=== PATIENT | male | born 1945 | race Caucasian/White ===

== ENCOUNTER 2021-04-22 11:27 | Inpatient (IN) | payer OTHER, SELFPAY ==
[2021-04-22] VITALS (8 sets, daily range): BP systolic 105–160; BP diastolic 44–78; PULSE 96–125; RESP 12–22; TEMP 36.8–37.2; O2SAT 87–98; BMI 38.7
--- NOTE | ~2021-04-22 | XR_ITS ---
EXAMINATION: XR CHEST CLINICAL INFORMATION: Shortness of breath COMPARISON: None TECHNIQUE: Frontal view of the chest was obtained. FINDINGS: The cardiac silhouette is enlarged. There are median sternotomy wires bowel. Hilar and mediastinal contours are unremarkable. Elevation of the right hemidiaphragm. The lungs are clear. There is no pleural effusion or pneumothorax. Bony structures are unremarkable. XR/XR chest 1V IMPRESSION: Enlarged heart and postoperative changes from aortic valve replacement. Elevated right hemidiaphragm.
--- NOTE | 2021-04-22 11:52 | ECG_ITS ---
Test Reason : DYSPNEA Blood Pressure : / mmHG Vent. Rate : 109 BPM Atrial Rate : 000 BPM P-R Int : 000 ms QRS Dur : 136 ms QT Int : 384 ms P-R-T Axes : 000 -74 049 degrees QTc Int : 517 ms Atrial fibrillation with rapid ventricular response with premature ventricular or aberrantly conducted complexes Left axis deviation Right bundle branch block Abnormal ECG No previous ECGs available Referred By: Manda Leyva Electronically Signed By:Karthik Wagner
--- NOTE | 2021-04-22 12:28 | ED_ITS ---
HPI - SOB/Dyspnea General Chief Complaint: Dyspnea Stated Complaint: SOB,-COVID Time Seen by Provider: 04/22/21 11:52 Source: patient and EMS Mode of arrival: EMS Limitations: no limitations History of Present Illness HPI Narrative: 75-year-old male with a history of bovine aortic valve replacement 2009 on warfarin, CHF, HLD, COPD, FARNAZ on CPAP (noncompliant as of late w/ no machine), hypothyroidism, DM on insulin w/ neuropathy, HLD, afib, hx rib fractures s/p fall 7 weeks ago who presents to the ER from his [place] [facility] where he is temporarily residing via EMS with SOB and cough x3 days. He reports calling an ambulance to the [place] [facility] on 04/20 but EMT's didn't think he had pneumonia and his VS were normal so he signed a paper to refuse transport. He reports his breathing has continued to get worse over the last 2 days. He is bringing up white and clear phlegm. He states his breathing is worse with exertion, coughing, and lying flat. He denies any fever or chills. He had negative COVID test 2 days ago and was due to get another COVID test today. He reports there has been COVID positive people at the [place] [facility]. He is vaccinated with 2 shots a Pfizer in May & July, has not gotten booster yet. He denies any abdominal pain or diarrhea, but he was dry heaving today. He reports his INR last week was 5.8 and he had some intermittent nose bleeds but denies any evidence of GI bleed. INR better today at 4.0 per his report. He denies any chest pain. MD elicited complaint: shortness of breath and cough Pertinent past history: COPD, congestive heart failure and diabetes Onset (ago): day(s) (3) Context: recent illness Timing: constant and progressively worsening Severity: moderate Exacerbating factors: lying flat, exertion and coughing Relieving factors: rest Known history of: COPD, congestive heart failure and diabetes Associated symptoms: cough, sputum production and chest congestion Treatment prior to arrival: none Related Data Home oxygen amount: none Home Medications Medication Instructions Recorded Confirmed aspirin 81 mg tablet,delayed 1 tab PO BEDTIME 04/22/21 04/22/21 release atorvastatin 40 mg tablet 1 tab PO BEDTIME 04/22/21 04/22/21 bumetanide 2 mg tablet 1 tab PO BID 04/22/21 04/22/21 gabapentin 300 mg capsule 1 cap PO TID 04/22/21 04/22/21 insulin aspart U-100 100 unit/mL See Protocol SUBCUT QIDACHS 04/22/21 04/22/21 (3 mL) subcutaneous pen (Novolog Flexpen U-100 Insulin aspart) insulin glargine 100 unit/mL (3 36 unit SUBCUT BEDTIME 04/22/21 04/22/21 mL) subcutaneous pen (Lantus Solostar U-100 Insulin) levothyroxine 25 mcg tablet 1 tab PO DAILY 04/22/21 04/22/21 lisinopril 40 mg tablet 1 tab PO DAILY 04/22/21 04/22/21 metoprolol succinate 100 mg 1 tab PO DAILY 04/22/21 04/22/21 tablet,extended release 24 hr multivitamin with folic acid 400 1 tab PO DAILY 04/22/21 04/22/21 mcg tablet (Tab-A-Priscilla) warfarin 5 mg tablet 5 mg PO DAILY 04/22/21 04/22/21 Allergies Allergy/AdvReac Type Severity Reaction Status Date / Time Unable to Assess Allergy Unverified 04/22/21 11:52 Review of Systems Review of Systems: Constitutional: No Fever, No Chills ENT/Mouth: No sore throat, No Rhinorrhea, No Swallowing Difficulty Eyes: No Eye Pain, No Swelling, No Redness Cardiovascular: No Chest Pain, + SOB, + Orthopnea, + Edema Respiratory: + Cough, + Sputum, No Wheezing, + dyspnea Gastrointestinal: No Nausea, No Vomiting, No Diarrhea, No abdominal Pain, No Hematochezia, No Melena Genitourinary: No Dysuria, No Urinary Frequency, No Hematuria Musculoskeletal: No joint pain, No Myalgias Skin: No Skin Lesions, No rash Neuro: No Weakness, No Numbness, No Dizziness, No Headache Psych: No Anxiety/Panic, No Depression Heme/Lymph: No Bruising, No Lymphadenopathy Endocrine: No Polyuria, No Polydipsia PMFSH Past Medical History Medical History (Updated 04/22/21 @ 16:37 by ELVIE Vela) A-fib Aortic stenosis Carotid artery disease COPD (chronic obstructive pulmonary disease) Drop foot gait Heart failure HLD (hyperlipidemia) Hypertension Neuropathy FARNAZ (obstructive sleep apnea) Pneumonia Surgical History History of aortic valve replacement Social History Social History (Updated 04/22/21 @ 16:38 by ELVIE Vela) Alcohol intake: never Patient Tobacco Use Status: Never used Tobacco Use of substances other than those prescribed or required for medical reasons: No Advance Directives: No Advance Directives Information Provided: Yes Physical Exam Vital Signs: Vital Signs: Last Vital Signs Temp 98.3 F 04/22/21 15:01 Pulse 110 H 04/22/21 15:01 Resp 19 04/22/21 15:01 BP 147/59 H 04/22/21 15:01 Pulse Ox 98 04/22/21 15:01 BMI result Body Mass Index 38.7 Appearance: Alert. Oriented X3. No acute distress. Eyes: Pupils equal, round and reactive to light. ENT: Pharynx normal. Neck: Normal inspection. Neck supple. CVS: Irregularly irregular, rapid rate, 110. Question of murmur. Pulses normal. Respiratory: No respiratory distress. Breath sounds diminished bilaterally with faint wheezes throughout the right lung. Abdomen: Obese, ecchymosis on lower abdomen. Soft and nontender. +BS x4 Skin: Skin warm and dry. Normal skin color. Normal skin turgor. No rashes. Extremities: 1+ lower extremity edema. Neuro: Oriented X 3. No motor deficit. No sensory deficit. Course Course Course Narrative: 75-year-old male with a history of COPD, CHF, diabetes, heart valve replacement on Coumadin, AFib who presents to the ER with shortness of breath and cough times the last 3 days. EMS was called for him to the [place] [facility] on Sunday but he signed a paper and declined to come to the hospital because he was feeling ?okay. ? He states his breathing has only gotten worsening has been unable to sleep the last 2 nights because of his shortness of breath. He is a never smoker and is not on any inhalers for his COPD. He has been noncompliant with his CPAP because he currently does not have his machine. He denies any fever or chills. He is vaccinated for COVID-19 with 2 Pfizer vaccines but has not gotten his booster yet. He is bringing up white or clear phlegm and is having recurrent bouts of coughing fits. On arrival to the ER patient is tachycardic in rapid afib and hypoxic to 87% on room air. He is placed on 2 L with improvement in his sats 96%. Concern for possible pneumonia versus COVID. Will get chest x-ray, metabolic workup, EKG, INR. He reports his INR was 4 today and 5.8 last week. He denies any evidence of GI bleeding but has had a few minor nosebleeds in the last few days are able to be stopped with pressure. Doubt PE in the setting of supratherapeutic INR Reevaluation(s) Reevaluation #1: 1:30 - Labs reveal no leukocytosis. His chemistry hemolyzed needs to be repeated. His troponin is 30, will repeat in 3 hours. His EKG does not have any ischemic changes. BNP 334 - he on 2mg PO Bumex BID - will hold off on IV fluids for now. Chest x-ray showing right hemidiaphragm elevation but lungs are clear. His rapid COVID is negative. Will get viral PCR test as well. Will empirically treat with a dose of IV Levaquin for respiratory coverage, possible bronchitis with evidence of COPD exacerbation and wheezing on examination. DuoNeb ordered. Will reassess. Trialed off of supplemental oxygen and desaturated to 87% while speaking. Placed back on 2 L nasal cannula with improvement in saturations. HR 110s - he reports not taking his metoprolol due to dry heaving today. Reevaluation #2: 3:30 - chemistry returned with BUN/Cr 25/1.17, bicarb 33. will hold off on IV diuresis for now, he does not appear acutely volume overloaded. His SOB is more likely due to COPD exacerbation and acute bronchitis. Aeration improved some after neb. Will plan for admission. Dr. Trevizo TT for admit. MDM - SOB/Dyspnea Differential Diagnosis Differential diagnosis: Likely acute exacerbation of chronic obstructive airways disease, congestive heart failure, pneumonia, asthma with exacerbation, pleural effusion, sleep apnea and anemia Medical Records Attestation: I reviewed the patient's medical records. Lab Data Attestation: I reviewed the patient's lab results. Result diagrams: 04/22/21 12:30 04/22/21 14:36 Labs: Lab Results 04/22/21 04/22/21 04/22/21 Range/Units 12:30 12:30 12:30 WBC 8.1 (4.8-10.8) X10*3/uL RBC 3.86 L (4.60-5.80) X10*6/uL Hgb 11.6 L (14.0-18.0) g/dl Hct 37.1 L (42.0-52.0) % MCV 96.1 (80.0-98.0) fL MCH 30.1 (27.0-33.0) pg MCHC 31.3 (31.0-36.0) g/dl RDW 14.3 (11.0-16.0) % Plt Count 117 L (160-400) X10*3/uL MPV 11.8 (9.4-12.4) fL Immature Gran % (Auto) 0.2 (0.0-0.4) % Neut % (Auto) 79.4 H (45-73) % Lymph % (Auto) 11.6 L (20-40) % Rhea % (Auto) 7.8 (2-11) % Eos % (Auto) 0.6 (0-4) % Baso % (Auto) 0.4 (0-2) % Lymph # (Auto) 0.9 L (1.2-4.9) X10*3/uL Rhea # (Auto) 0.6 (0.1-1.2) X10*3/uL Eos # (Auto) 0.1 (0.0-0.4) X10*3/uL Baso # (Auto) 0.0 (0.0-0.2) X10*3/uL Abs Immat Gran (auto) 0.02 (0.00-0.03) X10*3/uL Absolute Neuts (auto) 6.4 (2.0-8.3) x10*3/uL Absolute Nucleated RBC 0.000 (0.0-0.012) X10*3/uL Nucleated RBC % (auto) 0.0 (0.0-0.2) /100WBC PT 44.7 H (9.9-13.0) SEC INR 3.8 H (0.9-1.1) APTT 53.6 H (24.1-38.0) SEC Sodium (135-145) mmol/L Potassium (3.3-5.1) mmol/L Chloride (96-108) mmol/L Carbon Dioxide (22-29) mmol/L Anion Gap (12-20) BUN (9-16) mg/dL Creatinine (0.5-1.4) mg/dL Estim Creat Clear Calc Estimated GFR Random Glucose (60-115) mg/dL Lactic Acid (0.5-2.0) mmol/L Calcium (8.4-10.2) mg/dL Magnesium (1.6-2.6) mg/dL Total Bilirubin (0.0-1.0) mg/dL Direct Bilirubin (0.0-0.5) mg/dL AST (5-37) U/L ALT (0-40) U/L Alkaline Phosphatase (39-117) U/L Troponin I High Sens 30.6 (<3.5-35.0) ng/L B-Natriuretic Peptide 334 H (<100) pg/mL Total Protein (6.5-8.0) g/dL Albumin (3.5-5.0) g/dL TSH (0.32-4.0) uIU/mL COVID-19 (CHEPE) (Negative) COVID-19 Clin Com Influenza Type A (PCR) (Negative) Influenza Type B (PCR) (Negative) RSV RNA Qual (PCR) (Negative) SARS-CoV-2 RNA (RT-PCR) (Negative) 04/22/21 04/22/21 04/22/21 Range/Units 12:31 14:36 14:36 WBC (4.8-10.8) X10*3/uL RBC (4.60-5.80) X10*6/uL Hgb (14.0-18.0) g/dl Hct (42.0-52.0) % MCV (80.0-98.0) fL MCH (27.0-33.0) pg MCHC (31.0-36.0) g/dl RDW (11.0-16.0) % Plt Count (160-400) X10*3/uL MPV (9.4-12.4) fL Immature Gran % (Auto) (0.0-0.4) % Neut % (Auto) (45-73) % Lymph % (Auto) (20-40) % Rhea % (Auto) (2-11) % Eos % (Auto) (0-4) % Baso % (Auto) (0-2) % Lymph # (Auto) (1.2-4.9) X10*3/uL Rhea # (Auto) (0.1-1.2) X10*3/uL Eos # (Auto) (0.0-0.4) X10*3/uL Baso # (Auto) (0.0-0.2) X10*3/uL Abs Immat Gran (auto) (0.00-0.03) X10*3/uL Absolute Neuts (auto) (2.0-8.3) x10*3/uL Absolute Nucleated RBC (0.0-0.012) X10*3/uL Nucleated RBC % (auto) (0.0-0.2) /100WBC PT (9.9-13.0) SEC INR (0.9-1.1) APTT (24.1-38.0) SEC Sodium 143 (135-145) mmol/L Potassium 4.1 (3.3-5.1) mmol/L Chloride 101 (96-108) mmol/L Carbon Dioxide 33 H (22-29) mmol/L Anion Gap 13 (12-20) BUN 25 H (9-16) mg/dL Creatinine 1.17 (0.5-1.4) mg/dL Estim Creat Clear Calc 65.1 Estimated GFR > 60 Random Glucose 217 H (60-115) mg/dL Lactic Acid (0.5-2.0) mmol/L Calcium 9.1 (8.4-10.2) mg/dL Magnesium 2.3 (1.6-2.6) mg/dL Total Bilirubin 1.3 H (0.0-1.0) mg/dL Direct Bilirubin 0.6 H (0.0-0.5) mg/dL AST 26 (5-37) U/L ALT 20 (0-40) U/L Alkaline Phosphatase 165 H (39-117) U/L Troponin I High Sens (<3.5-35.0) ng/L B-Natriuretic Peptide (<100) pg/mL Total Protein 7.4 (6.5-8.0) g/dL Albumin 3.8 (3.5-5.0) g/dL TSH 2.33 (0.32-4.0) uIU/mL COVID-19 (CHEPE) Negative (Negative) COVID-19 Clin Com See Note Influenza Type A (PCR) (Negative) Influenza Type B (PCR) (Negative) RSV RNA Qual (PCR) (Negative) SARS-CoV-2 RNA (RT-PCR) (Negative) 04/22/21 04/22/21 Range/Units 14:36 14:36 WBC (4.8-10.8) X10*3/uL RBC (4.60-5.80) X10*6/uL Hgb (14.0-18.0) g/dl Hct (42.0-52.0) % MCV (80.0-98.0) fL MCH (27.0-33.0) pg MCHC (31.0-36.0) g/dl RDW (11.0-16.0) % Plt Count (160-400) X10*3/uL MPV (9.4-12.4) fL Immature Gran % (Auto) (0.0-0.4) % Neut % (Auto) (45-73) % Lymph % (Auto) (20-40) % Rhea % (Auto) (2-11) % Eos % (Auto) (0-4) % Baso % (Auto) (0-2) % Lymph # (Auto) (1.2-4.9) X10*3/uL Rhea # (Auto) (0.1-1.2) X10*3/uL Eos # (Auto) (0.0-0.4) X10*3/uL Baso # (Auto) (0.0-0.2) X10*3/uL Abs Immat Gran (auto) (0.00-0.03) X10*3/uL Absolute Neuts (auto) (2.0-8.3) x10*3/uL Absolute Nucleated RBC (0.0-0.012) X10*3/uL Nucleated RBC % (auto) (0.0-0.2) /100WBC PT (9.9-13.0) SEC INR (0.9-1.1) APTT (24.1-38.0) SEC Sodium (135-145) mmol/L Potassium (3.3-5.1) mmol/L Chloride (96-108) mmol/L Carbon Dioxide (22-29) mmol/L Anion Gap (12-20) BUN (9-16) mg/dL Creatinine (0.5-1.4) mg/dL Estim Creat Clear Calc Estimated GFR Random Glucose (60-115) mg/dL Lactic Acid 2.0 (0.5-2.0) mmol/L Calcium (8.4-10.2) mg/dL Magnesium (1.6-2.6) mg/dL Total Bilirubin (0.0-1.0) mg/dL Direct Bilirubin (0.0-0.5) mg/dL AST (5-37) U/L ALT (0-40) U/L Alkaline Phosphatase (39-117) U/L Troponin I High Sens (<3.5-35.0) ng/L B-Natriuretic Peptide (<100) pg/mL Total Protein (6.5-8.0) g/dL Albumin (3.5-5.0) g/dL TSH (0.32-4.0) uIU/mL COVID-19 (CHEPE) (Negative) COVID-19 Clin Com Influenza Type A (PCR) NEGATIVE (Negative) Influenza Type B (PCR) NEGATIVE (Negative) RSV RNA Qual (PCR) NEGATIVE (Negative) SARS-CoV-2 RNA (RT-PCR) NEGATIVE (Negative) ECG Data Attestation: I personally reviewed and interpreted this ECG as follows: ECG interpretation date: 04/22/21 ECG interpretation time: 13:46 Prior ECG tracings: not available for review Interpretation: AFib with rapid ventricular response, heart rate 109 beats per minute, right bundle-branch block, intermittent occasional PVCs, no ST segment elevations or depressions. Critical Care Time Critical Care Time Critical Care Time: Yes Total Critical Care Time: 48 Attestation: I have personally provided critical care time exclusive of time spent on separately billable procedures. Time includes review of lab data, radiology results, discussion with consultants/hospitalists, and monitoring for potential decompensation. Intervention performed as documented. Discharge Plan Discharge Clinical Impression: Acute exacerbation of chronic obstructive airways disease, Acute respiratory failure with hypoxia, Bronchitis, Atrial fibrillation with rapid ventricular response Patient Disposition: Admitted As Inpatient
[2021-04-22 12:35] LABS: MANUAL DIFF FLAG NO
[2021-04-22 12:43] LABS: Basophils Percent Auto 0.4 % (0-2); Eosinophils Absolute Auto 0.1 X10*3/uL (0.0-0.4); Eosinophils Percent Auto 0.6 % (0-4); Hematocrit 37.1 % (42.0-52.0); Hemoglobin 11.6 g/dl (14.0-18.0); Imm Gran Abs Auto 0.02 X10*3/uL (0.00-0.03); Imm Gran Pct Auto 0.2 % (0.0-0.4); Lymphocytes Absolute Auto 0.9 X10*3/uL (1.2-4.9); Lymphocytes Percent Auto 11.6 % (20-40); Mean Corpuscular HGB Conc 31.3 g/dl (31.0-36.0); Mean Corpuscular Hemoglobin 30.1 pg (27.0-33.0); Mean Corpuscular Volume 96.1 fL (80.0-98.0); Mean Platelet Volume 11.8 fL (9.4-12.4); Monocytes Absolute Auto 0.6 X10*3/uL (0.1-1.2); Monocytes Percent Auto 7.8 % (2-11); Neutrophils Absolute Auto 6.4 x10*3/uL (2.0-8.3); Neutrophils Percent Auto 79.4 % (45-73); Platelet Count 117 X10*3/uL (160-400); Red Blood Count 3.86 X10*6/uL (4.60-5.80); Red Cell Distribution Width 14.3 % (11.0-16.0); White Blood Count 8.1 X10*3/uL (4.8-10.8)
[2021-04-22 12:45] LABS: INTERNATIONAL NORM RATIO 3.8 (0.9-1.1); Prothrombin Time 44.7 SEC (9.9-13.0)
[2021-04-22 12:48] LABS: Partial Thromboplastin Time 53.6 SEC (24.1-38.0)
[2021-04-22 13:05] LABS: B Type Natriuretic Peptide 334 pg/mL (<100); Troponin-I High Sensitivity 30.6 ng/L (<3.5-35.0)
[2021-04-22 13:07] LABS: COVID-19 Test Negative (Negative)
--- NOTE | 2021-04-22 13:09 | PC.NURSE ---
called resp re updraft order
[2021-04-22] MEDS: Albuterol/Iprat 2.5/0.5MG 3 ML AMPUL.NEB INHALE ×2 (13:15→20:43)
[2021-04-22] MEDS: Metoprolol Succinate ER 100 MG TAB.ER.24H PO (14:23)
[2021-04-22] MEDS: levoFLOXacin/D5W 750 MG/150 ML PIGGYBACK 100 MG IV (14:59)
[2021-04-22 15:01] LABS: Alanine Aminotransferase 20 U/L (0-40); Albumin Level 3.8 g/dL (3.5-5.0); Alkaline Phosphatase 165 U/L (39-117); Anion Gap 13 (12-20); Aspartate Amino Transferase 26 U/L (5-37); Bilirubin Direct 0.6 mg/dL (0.0-0.5); Bilirubin Total 1.3 mg/dL (0.0-1.0); Blood Urea Nitrogen 25 mg/dL (9-16); Calcium 9.1 mg/dL (8.4-10.2); Carbon Dioxide 33 mmol/L (22-29); Chloride 101 mmol/L (96-108); Creatinine Clr Calc Pharmacy 65.1; Estimated Glomerular Filt Rate > 60; Glucose Random 217 mg/dL (60-115); Magnesium 2.3 mg/dL (1.6-2.6); Potassium 4.1 mmol/L (3.3-5.1); Sodium 143 mmol/L (135-145); Total Protein 7.4 g/dL (6.5-8.0)
--- NOTE | 2021-04-22 15:05 | PC.NURSE ---
patient a&ox3, bc drawn, repeat labs drawn, vss, monitor and storage bin tender afib with pvcs, pt speaking with pharmacist, iv antibiotics per order.
--- NOTE | 2021-04-22 15:16 | PHA.MEDREC ---
Pharmacy Consult ? Medication Reconciliation Pharmacy has completed the medication reconciliation.
[2021-04-22 15:19] LABS: TSH reflex Free T4 2.33 uIU/mL (0.32-4.0)
[2021-04-22 15:21] LABS: Influenza A PCR NEGATIVE (Negative); Influenza B PCR NEGATIVE (Negative); Resp Syncy Virus RNA Qual PCR NEGATIVE (Negative); SARS COV2 PCR INHOUSE NEGATIVE (Negative)
--- NOTE | 2021-04-22 16:23 | P.HPHOSP_ITS ---
History of Present Illness Date of Service: 04/22/21 Attending physician on admission: Ozzy Davidson Chief Complaint: shortness of breath This is a 75-year-old male with multiple medical problems who presented with shortness of breath. Patient states he is having shortness of breath for the past 2-3 days. This has been associated with cough productive of clear phlegm. He denies any associated fever or chills. He did have an episode of dry heaving this morning but denies any abdominal pain, nausea, vomiting, diarrhea. He denies any chest pain, palpitations. On arrival to the emergency department he was noted to be hypoxic with an oxygen saturation of 80% on room air which improved with supplemental oxygen. Chest x-ray demonstrated no evidence of pneumonia. Lab work was relatively unremarkable, no leukocytosis. Troponin was in the indeterminate range at 30. Repeat pending at the time of admission. BNP 333. Patient has been compliant with his diuretics, denies any weight gain, no orthopnea, no change in lower extremity swelling. He tested negative for COVID- 19, RSV, flu. In the emergency department he noted to be wheezing which improved with breathing treatment. He was also given a dose of levofloxacin for possible bronchitis. Heart rate was elevated an EKG revealed atrial fibrillation with rapid ventricular response. Patient did not take his metoprolol this morning due to his dry heaving. He received a dose of oral metoprolol with good effect. Given his hypoxia the decision was made to admit him for further management. COVID vaccination status-whodoyou x2 Review of Systems Review of Systems: Yes all other systems are reviewed and are negative Constitutional: Constitutional: Denies chills and Denies fever(s) Cardiovascular: Cardiovascular: Denies chest pain, Denies palpitations, Reports dyspnea, Denies orthopnea and Denies paroxysmal nocturnal dyspnea Respiratory: Respiratory: Reports cough, Reports pain with cough and Reports dyspnea Gastrointestinal: Gastrointestinal: Denies abdominal pain Endocrine: Endocrine: Denies palpitations [facility] Medical History (Updated 04/22/21 @ 16:37 by ELVIE Vela) A-fib Aortic stenosis Carotid artery disease COPD (chronic obstructive pulmonary disease) Drop foot gait Heart failure HLD (hyperlipidemia) Hypertension Neuropathy FARNAZ (obstructive sleep apnea) Pneumonia Functional capacity: uses cane/walker Pertinent family history: Reviewed, mom age 80, unclear cause Son of intracranial hemorrhage in the setting of seizure at age 49 Surgical History History of aortic valve replacement Social History (Updated 04/22/21 @ 16:38 by ELVIE Vela) Alcohol intake: never Patient Tobacco Use Status: Never used Tobacco Use of substances other than those prescribed or required for medical reasons: No Advance Directives: No Advance Directives Information Provided: Yes Meds Allergies Allergy/AdvReac Type Severity Reaction Status Date / Time Unable to Assess Allergy Unverified 04/22/21 11:52 Active Medications: Current Medications Acetaminophen (Acetaminophen 325 Mg Tablet) 650 mg PO Q6H PRN PRN Reason: Pain, Mild (Pain Scale 1-3) Albuterol/Ipratropium (Albuterol/Iprat 2.5/0.5mg 3 Ml Ampul.Neb) 3 ml INHALE RQ6H WHILE AWAKE NENA Aspirin (Aspirin Enteric Coated 81 Mg Tablet.Dr) 81 mg PO BEDTIME NENA Atorvastatin Calcium (Atorvastatin Calcium 40 Mg Tablet) 40 mg PO BEDTIME NENA Bumetanide (Bumetanide 1 Mg Tablet) 2 mg PO BIDWM NENA; Protocol Dextrose (Dextrose 50 % 25 Gm/50 Ml Syringe) 25 gm IVPUSH Q15M PRN; Protocol PRN Reason: per Hypoglycemia Standing Ord. Docusate Sodium (Docusate Sodium 100 Mg Capsule) 100 mg PO DAILY PRN PRN Reason: Constipation Gabapentin (Gabapentin 300 Mg Capsule) 300 mg PO TID NENA Glucose (Glucose Gel 15 Gm Gel..Gram.) 15 gm PO Q15M PRN; Protocol PRN Reason: per Hypoglycemia Standing Ord. Azithromycin 500 mg/ Sodium (Chloride) 250 mls @ 125 mls/hr IV Q24H NENA Insulin Glargine (Insulin Glargine,Hum.Rec.Anlog 100 Unit/Ml 10 Ml Vial) 36 unit SUBCUT BEDTIME NENA Insulin Human Lispro (Insulin Lispro 100 Unit/Ml 3 Ml Vial) 0 unit SUBCUT QIDACHS NENA; Protocol Levothyroxine Sodium (Levothyroxine Sodium 25 Mcg Tablet) 25 mcg PO DAILY@0600 NENA Lisinopril (Lisinopril 40 Mg Tablet) 40 mg PO DAILY NENA; Protocol Metoprolol Succinate (Metoprolol Succinate Er 100 Mg Tab.Er.24h) 100 mg PO DAILY NENA; Protocol Ondansetron HCl (Ondansetron Hcl 4 Mg/2 Ml Vial) 4 mg IVPUSH Q8H PRN PRN Reason: Nausea and Vomiting Pharmacy Consult (Consult Rx Perform Med Rec) 1 each MISCELLANE ONCE PRN PRN Reason: Consult order Sodium Chloride (0.9 % Sodium Chloride Flush 3 Ml Syringe) 3 ml IVFLUSH QSHIFT [facility] Home Medications Medication Instructions Recorded Confirmed Last Taken Type aspirin 81 mg tablet,delayed 1 tab PO BEDTIME 04/22/21 04/22/21 04/21/21 History release atorvastatin 40 mg tablet 1 tab PO BEDTIME 04/22/21 04/22/21 04/21/21 History bumetanide 2 mg tablet 1 tab PO BID 04/22/21 04/22/21 04/22/21 History gabapentin 300 mg capsule 1 cap PO TID 04/22/21 04/22/21 04/22/21 History insulin aspart U-100 100 unit/mL See Protocol SUBCUT QIDACHS 04/22/21 04/22/21 04/19/21 History (3 mL) subcutaneous pen (Novolog Flexpen U-100 Insulin aspart) insulin glargine 100 unit/mL (3 36 unit SUBCUT BEDTIME 04/22/21 04/22/21 04/19/21 History mL) subcutaneous pen (Lantus Solostar U-100 Insulin) levothyroxine 25 mcg tablet 1 tab PO DAILY 04/22/21 04/22/21 04/22/21 History lisinopril 40 mg tablet 1 tab PO DAILY 04/22/21 04/22/21 04/22/21 History metoprolol succinate 100 mg 1 tab PO DAILY 04/22/21 04/22/21 04/22/21 History tablet,extended release 24 hr multivitamin with folic acid 400 1 tab PO DAILY 04/22/21 04/22/21 04/22/21 History mcg tablet (Tab-A-Priscilla) warfarin 5 mg tablet 5 mg PO DAILY 04/22/21 04/22/21 Unknown History Physical Exam Vital Signs and Narrative: Vital Signs: Last Vital Signs Temp 98.3 F 04/22/21 15:01 Pulse 110 H 04/22/21 15:01 Resp 19 04/22/21 15:01 BP 147/59 H 04/22/21 15:01 Pulse Ox 98 01/21/22 15:01 BMI result Body Mass Index 38.7 Const: General: cooperative, comfortable, alert and awake Nutritional Appearance: well nourished Orientation/consciousness: patient oriented x3 HENMT: Head: Yes normocephalic and Yes atraumatic Eyes: Sclerae: sclerae normal Chest: Other: well healed midline sternotomy scar Resp: Other: rhonchi, no wheezing Effort & Inspection: normal respiratory effort and no respiratory distress Cardio: Jugular venous distension: no JVD Rate: tachycardic Rhythm: abnormal rhythm (irregular) GI: Palpation (GI): Soft to palpation and nontender Neuro: General: patient oriented x3 Cranial nerves: Yes CN's II-XII intact bilaterally and Yes Bilaterally intact EOM present Extrem: Other: b/l anterior rodrigez skin changes, scars trace b/l LE edema Results Labs CBC and Chem 7: 04/22/21 12:30 04/22/21 14:36 Labs: Laboratory Results - last 24 hr 04/22/21 04/22/21 04/22/21 12:30 12:30 12:30 MCV 96.1 MCH 30.1 MCHC 31.3 RDW 14.3 Plt Count 117 L MPV 11.8 Immature Gran % (Auto) 0.2 Neut % (Auto) 79.4 H Lymph % (Auto) 11.6 L Sanders % (Auto) 7.8 Eos % (Auto) 0.6 Baso % (Auto) 0.4 Lymph # (Auto) 0.9 L Sanders # (Auto) 0.6 Eos # (Auto) 0.1 Baso # (Auto) 0.0 Abs Immat Gran (auto) 0.02 Absolute Neuts (auto) 6.4 Absolute Nucleated RBC 0.000 Nucleated RBC % (auto) 0.0 PT 44.7 H INR 3.8 H APTT 53.6 H Anion Gap Estim Creat Clear Calc Estimated GFR Random Glucose Lactic Acid Calcium Magnesium Total Bilirubin Direct Bilirubin AST ALT Alkaline Phosphatase Troponin I High Sens 30.6 B-Natriuretic Peptide 334 H Total Protein Albumin TSH COVID-19 (CHEPE) COVID-19 Clin Com Influenza Type A (PCR) Influenza Type B (PCR) RSV RNA Qual (PCR) SARS-CoV-2 RNA (RT-PCR) 04/22/21 04/22/21 04/22/21 12:31 14:36 14:36 MCV MCH MCHC RDW Plt Count MPV Immature Gran % (Auto) Neut % (Auto) Lymph % (Auto) Sanders % (Auto) Eos % (Auto) Baso % (Auto) Lymph # (Auto) Sanders # (Auto) Eos # (Auto) Baso # (Auto) Abs Immat Gran (auto) Absolute Neuts (auto) Absolute Nucleated RBC Nucleated RBC % (auto) PT INR APTT Anion Gap 13 Estim Creat Clear Calc 65.1 Estimated GFR > 60 Random Glucose 217 H Lactic Acid Calcium 9.1 Magnesium 2.3 Total Bilirubin 1.3 H Direct Bilirubin 0.6 H AST 26 ALT 20 Alkaline Phosphatase 165 H Troponin I High Sens B-Natriuretic Peptide Total Protein 7.4 Albumin 3.8 TSH 2.33 COVID-19 (CHEPE) Negative COVID-19 Clin Com See Note Influenza Type A (PCR) Influenza Type B (PCR) RSV RNA Qual (PCR) SARS-CoV-2 RNA (RT-PCR) 04/22/21 04/22/21 14:36 14:36 MCV MCH MCHC RDW Plt Count MPV Immature Gran % (Auto) Neut % (Auto) Lymph % (Auto) Sanders % (Auto) Eos % (Auto) Baso % (Auto) Lymph # (Auto) Sanders # (Auto) Eos # (Auto) Baso # (Auto) Abs Immat Gran (auto) Absolute Neuts (auto) Absolute Nucleated RBC Nucleated RBC % (auto) PT INR APTT Anion Gap Estim Creat Clear Calc Estimated GFR Random Glucose Lactic Acid 2.0 Calcium Magnesium Total Bilirubin Direct Bilirubin AST ALT Alkaline Phosphatase Troponin I High Sens B-Natriuretic Peptide Total Protein Albumin TSH COVID-19 (CHEPE) COVID-19 Clin Com Influenza Type A (PCR) NEGATIVE Influenza Type B (PCR) NEGATIVE RSV RNA Qual (PCR) NEGATIVE SARS-CoV-2 RNA (RT-PCR) NEGATIVE Imaging Radiologist's Impressions: Impressions Chest X-Ray 04/22/21 12:54 IMPRESSION: Enlarged heart and postoperative changes from aortic valve replacement. Elevated right hemidiaphragm. Assessment and Plan (1) Acute respiratory failure with hypoxia: Status: Acute (2) Bronchitis: Status: Acute (3) Atrial fibrillation with rapid ventricular response: Status: Acute This is a 75-year-old male with history of atrial fibrillation on Coumadin, CHF, HLD, COPD, bovine aortic valve replacement, FARNAZ on CPAP, hypothyroidism, diabetes who presented with two days of SOB found to have hypoxia Acute respiratory failure with hypoxia Probably secondary to acute bronchitis Supplemental oxygen as needed Acute bronchitis IV azithromycin Breathing treatments Will check respiratory pathogen panel Supplemental oxygen as needed Chronic Atrial fibrillation with rapid ventricular response Secondary to missing a.m. dose of metoprolol Improved with oral metoprolol in the ED Continue metoprolol Anticoagulation with Coumadin, INR elevated at 3.8. Coumadin on hold Follow INR daily COPD reports h/o COPD despite being lifelong non-smoker not on inhalers/breathing treatments at home no wheezing on exam prn breathing treatments Chronic Heart failure, unspecified No echocardiogram available in system BNP 334, trace leg edema, but does not appear to be in heart failure clinically Continue home dose of Bumex Diabetes Continue home dose of insulin SSI, ADA diet Peripheral neuropathy Continue gabapentin HTN continue lisinopril Hypothyroidism TSH within normal limits Continue Synthroid HLD Continue statin FARNAZ Continue CPAP DVT prophylaxis-Coumadin Code status-DNR/DNI HCP-patient endorses Sofya Cuevas, his friend as his healthcare proxy Attending - Dr. Davidson Quality Stroke Does the patient have a stroke diagnosis?: No VTE Prior VTE?: No VTE Risk Level:: Medical - moderate - high VTE Device Contraindication: N/A - Device Ordered VTE Drug Contraindication: N/A - Med Ordered
[2021-04-22 17:05] LABS: Troponin-I High Sensitivity 40.8 ng/L (<3.5-35.0)
[2021-04-22 17:06] LABS: Glucose, Whole Blood 191 mg/dL (60-115)
[2021-04-22] MEDS: Bumetanide 1 MG TABLET 2 MG PO (17:13)
[2021-04-22] MEDS: Insulin Lispro 100 UNIT/ML 3 ML VIAL SUBCUT ×2 (17:14→20:40)
[2021-04-22 20:33] LABS: Glucose, Whole Blood 234 mg/dL (60-115)
[2021-04-22] MEDS: Atorvastatin Calcium 40 MG TABLET PO (20:39)
[2021-04-22] MEDS: Insulin Glargine,Hum.rec.anlog 100 UNIT/ML 10 ML VIAL 36 UNIT SUBCUT (20:39)
[2021-04-22] MEDS: Aspirin Enteric Coated 81 MG TABLET.DR PO (20:39)
[2021-04-22] MEDS: Gabapentin 300 MG CAPSULE PO (20:39)
--- NOTE | 2021-04-22 23:08 | PC.NURSE ---
Assumed care of pt at 2300. Pt resting in bed, in NAD. Continues to endorse productive cough and associated rib pain. Given maggi philip and ice, denies further needs at this time. Awaiting inpatient bed assignment
[2021-04-23] MEDS: Levothyroxine Sodium 25 MCG TABLET PO (06:25)
[2021-04-23 06:26] VITALS: BP 118/51; PULSE 82; RESP 23; O2SAT 96
[2021-04-23] MEDS: Azithromycin 500 MG in 0.9 % Sodium Chloride 250 ML 125 MG IV (06:29)
[2021-04-23 07:05] LABS: MANUAL DIFF FLAG NO
[2021-04-23 07:08] LABS: Basophils Percent Auto 0.3 % (0-2); Eosinophils Absolute Auto 0.1 X10*3/uL (0.0-0.4); Eosinophils Percent Auto 1.8 % (0-4); Hematocrit 35.1 % (42.0-52.0); Hemoglobin 10.8 g/dl (14.0-18.0); Imm Gran Abs Auto 0.02 X10*3/uL (0.00-0.03); Imm Gran Pct Auto 0.3 % (0.0-0.4); Lymphocytes Percent Auto 13.1 % (20-40); Mean Corpuscular HGB Conc 30.8 g/dl (31.0-36.0); Mean Corpuscular Hemoglobin 29.8 pg (27.0-33.0); Mean Corpuscular Volume 96.7 fL (80.0-98.0); Monocytes Absolute Auto 0.7 X10*3/uL (0.1-1.2); Monocytes Percent Auto 9.4 % (2-11); Neutrophils Absolute Auto 5.8 x10*3/uL (2.0-8.3); Neutrophils Percent Auto 75.1 % (45-73); Platelet Count 104 X10*3/uL (160-400); Red Blood Count 3.63 X10*6/uL (4.60-5.80); Red Cell Distribution Width 14.3 % (11.0-16.0); White Blood Count 7.7 X10*3/uL (4.8-10.8)
[2021-04-23 07:17] LABS: INTERNATIONAL NORM RATIO 4.2 (0.9-1.1); Prothrombin Time 49.1 SEC (9.9-13.0)
[2021-04-23 07:29] LABS: Anion Gap 14 (12-20); Blood Urea Nitrogen 26 mg/dL (9-16); Calcium 8.6 mg/dL (8.4-10.2); Carbon Dioxide 31 mmol/L (22-29); Chloride 103 mmol/L (96-108); Creatinine Clr Calc Pharmacy 73.3; Estimated Glomerular Filt Rate > 60; Glucose Random 66 mg/dL (60-115); Sodium 144 mmol/L (135-145)
[2021-04-23 07:32] LABS: Glucose, Whole Blood 67 mg/dL (60-115)
[2021-04-23] MEDS: Albuterol/Iprat 2.5/0.5MG 3 ML AMPUL.NEB INHALE ×3 (08:41→21:55)
[2021-04-23 08:42] VITALS: PULSE 102; RESP 13; O2SAT 95
[2021-04-23] MEDS: Bumetanide 1 MG TABLET 2 MG PO ×2 (09:03→18:18)
[2021-04-23] MEDS: lisinopriL 40 MG TABLET PO (09:04)
[2021-04-23] MEDS: Gabapentin 300 MG CAPSULE PO ×2 (09:04→18:18)
[2021-04-23] MEDS: Metoprolol Succinate ER 100 MG TAB.ER.24H PO (09:04)
[2021-04-23] MEDS: 0.9 % Sodium Chloride Flush 3 ML SYRINGE IVFLUSH (09:05)
[2021-04-23 10:23] VITALS: BP 132/65; PULSE 103; RESP 12; O2SAT 92
--- NOTE | 2021-04-23 10:53 | P.CONCA_ITS ---
History of Present Illness History of Present Illness Date of Service: 04/23/21 Requesting physician: Ivana Dumas Chief complaint: hypoxia,afib RVR Narrative: 75-year-old gentleman with background history of COPD and atrial fibrillation on Coumadin who is presenting for shortness of breath. He has COPD exacerbation and is being treated appropriately. He was noted to be in AFib with RVR. He is denying any palpitations. He follows up at [facility] so he belongs to [facility]. He is saying his breathing is better. He was coughing up and by history it seems like he had COPD exacerbation. [facility] Past Medical History Medical History (Updated 04/23/21 @ 12:20 by Ivana Dumas [employer]) A-fib Aortic stenosis Carotid artery disease COPD (chronic obstructive pulmonary disease) Drop foot gait Heart failure HLD (hyperlipidemia) Hypertension Neuropathy FARNAZ (obstructive sleep apnea) Pneumonia Functional capacity: uses cane/walker Surgical History Surgical History History of aortic valve replacement Social History Social History (Updated 04/22/21 @ 16:38 by ELVIE Vela) Alcohol intake: never Patient Tobacco Use Status: Never used Tobacco Use of substances other than those prescribed or required for medical reasons: No Advance Directives: No Advance Directives Information Provided: Yes service: No Current occupational status: disabled Meds Allergies Allergy/AdvReac Type Severity Reaction Status Date / Time Unable to Assess Allergy Unverified 04/22/21 11:52 Active Medications: Current Medications Acetaminophen (Acetaminophen 325 Mg Tablet) 650 mg PO Q6H PRN PRN Reason: Pain, Mild (Pain Scale 1-3) Albuterol/Ipratropium (Albuterol/Iprat 2.5/0.5mg 3 Ml Ampul.Neb) 3 ml INHALE RQ6H WHILE AWAKE [facility] Last Admin: 04/23/21 08:41 Dose: 3 ml Documented by: Aspirin (Aspirin Enteric Coated 81 Mg Tablet.) 81 mg PO BEDTIME [facility] Last Admin: 04/22/21 20:39 Dose: 81 mg Documented by: Atorvastatin Calcium (Atorvastatin Calcium 40 Mg Tablet) 40 mg PO BEDTIME [facility] Last Admin: 04/22/21 20:39 Dose: 40 mg Documented by: Bumetanide (Bumetanide 1 Mg Tablet) 2 mg PO BIDWM [facility]; Protocol Last Admin: 04/23/21 09:03 Dose: 2 mg Documented by: Dextrose (Dextrose 50 % 25 Gm/50 Ml Syringe) 25 gm IVPUSH Q15M PRN; Protocol PRN Reason: per Hypoglycemia Standing Ord. Docusate Sodium (Docusate Sodium 100 Mg Capsule) 100 mg PO DAILY PRN PRN Reason: Constipation Gabapentin (Gabapentin 300 Mg Capsule) 300 mg PO TID [facility] Last Admin: 04/23/21 09:04 Dose: 300 mg Documented by: Glucose (Glucose Gel 15 Gm Gel..Gram.) 15 gm PO Q15M PRN; Protocol PRN Reason: per Hypoglycemia Standing Ord. Azithromycin 500 mg/ Sodium (Chloride) 250 mls @ 125 mls/hr IV Q24H [facility] Last Infusion: 04/23/21 09:08 Dose: Infused Documented by: Insulin Glargine (Insulin Glargine,Hum.Rec.Anlog 100 Unit/Ml 10 Ml Vial) 36 u nit SUBCUT BEDTIME [facility] Last Admin: 04/22/21 20:39 Dose: 36 unit Documented by: Insulin Human Lispro (Insulin Lispro 100 Unit/Ml 3 Ml Vial) 0 unit SUBCUT QIDACHS [facility]; Protocol Last Admin: 04/23/21 08:51 Dose: Not Given Documented by: Levothyroxine Sodium (Levothyroxine Sodium 25 Mcg Tablet) 25 mcg PO DAILY@0600 [facility] Last Admin: 04/23/21 06:25 Dose: 25 mcg Documented by: Lisinopril (Lisinopril 40 Mg Tablet) 40 mg PO DAILY [facility]; Protocol Last Admin: 04/23/21 09:04 Dose: 40 mg Documented by: Metoprolol Succinate (Metoprolol Succinate Er 100 Mg Tab.Er.24h) 100 mg PO DAILY [facility]; Protocol Last Admin: 04/23/21 09:04 Dose: 100 mg Documented by: Ondansetron HCl (Ondansetron Hcl 4 Mg/2 Ml Vial) 4 mg IVPUSH Q8H PRN PRN Reason: Nausea and Vomiting Pharmacy Consult (Consult Rx Perform Med Rec) 1 each MISCELLANE ONCE PRN PRN Reason: Consult order Sodium Chloride (0.9 % Sodium Chloride Flush 3 Ml Syringe) 3 ml IVFLUSH QSHIFT [facility] Last Admin: 04/23/21 09:05 Dose: 3 ml Documented by: Home Medications Medication Instructions Recorded Confirmed Last Taken Type aspirin 81 mg tablet,delayed 1 tab PO BEDTIME 04/22/21 04/22/21 04/21/21 History release atorvastatin 40 mg tablet 1 tab PO BEDTIME 04/22/21 04/22/21 04/21/21 History bumetanide 2 mg tablet 1 tab PO BID 04/22/21 04/22/21 04/22/21 History gabapentin 300 mg capsule 1 cap PO TID 04/22/21 04/22/21 04/22/21 History insulin aspart U-100 100 unit/mL See Protocol SUBCUT QIDACHS 04/22/21 04/22/21 04/19/21 History (3 mL) subcutaneous pen (Novolog Flexpen U-100 Insulin aspart) insulin glargine 100 unit/mL (3 36 unit SUBCUT BEDTIME 04/22/21 04/22/21 04/19/21 History mL) subcutaneous pen (Lantus Solostar U-100 Insulin) levothyroxine 25 mcg tablet 1 tab PO DAILY 04/22/21 04/22/21 04/22/21 History lisinopril 40 mg tablet 1 tab PO DAILY 04/22/21 04/22/21 04/22/21 History multivitamin with folic acid 400 1 tab PO DAILY 04/22/21 04/22/21 04/22/21 History mcg tablet (Tab-A-Priscilla) warfarin 5 mg tablet 5 mg PO DAILY 04/22/21 04/22/21 Unknown History Physical Exam Vital Signs: Vital Signs: Last Vital Signs Temp 98.2 F 04/22/21 17:11 Pulse 103 H 04/23/21 10:23 Resp 12 04/23/21 10:23 BP 132/65 04/23/21 10:23 Pulse Ox 92 04/23/21 10:23 BMI result Body Mass Index 38.7 GENERAL APPEARANCE: in no acute distress, pleasant. NECK: no carotid bruit, no jugular venous distention. SKIN: no suspicious lesions, warm and dry. HEART: no murmurs, irregular rate and rhythm. LUNGS: clear to auscultation bilaterally. ABDOMEN: soft, nontender. EXTREMITIES: no edema. PERIPHERAL PULSES: equal. NEUROLOGIC: No gross deficits, AAO X 3 Objective Labs and Meds Result diagrams: 04/23/21 06:57 04/23/21 06:57 Lab results: Laboratory Results - last 24 hr 04/22/21 04/22/21 04/22/21 12:30 12:30 12:30 WBC 8.1 RBC 3.86 L Hgb 11.6 L Hct 37.1 L MCV 96.1 MCH 30.1 MCHC 31.3 RDW 14.3 Plt Count 117 L MPV 11.8 Immature Gran % (Auto) 0.2 Neut % (Auto) 79.4 H Lymph % (Auto) 11.6 L [place] % (Auto) 7.8 Eos % (Auto) 0.6 Baso % (Auto) 0.4 Lymph # (Auto) 0.9 L [place] # (Auto) 0.6 Eos # (Auto) 0.1 Baso # (Auto) 0.0 Abs Immat Gran (auto) 0.02 Absolute Neuts (auto) 6.4 Absolute Nucleated RBC 0.000 Nucleated RBC % (auto) 0.0 PT 44.7 H INR 3.8 H APTT 53.6 H Sodium Potassium Chloride Carbon Dioxide Anion Gap BUN Creatinine Estim Creat Clear Calc Estimated GFR POC Glucose Random Glucose Lactic Acid Calcium Magnesium Total Bilirubin Direct Bilirubin AST ALT Alkaline Phosphatase Troponin I High Sens 30.6 B-Natriuretic Peptide 334 H Total Protein Albumin TSH Respiratory Panel Kline Adenovirus (Rapid PCR) B.pert (TEM-PCR) B.parapertussis DNA PCR C. pneumoniae DNA (PCR) Coronavirus OC43 (PCR) Coronavirus HKU1 (PCR) Coronavirus 229E (PCR) COVID-19 (CHEPE) COVID-19 Clin Com Coronavirus NL63 (PCR) Human Metapneumovir PCR Influenza A (RT-PCR) Influenza Type A (PCR) Influenza B (RT-PCR) Influenza Type B (PCR) M. pneumoniae (PCR) Parainfluenza 1 (PCR) Parainfluenza 2 (PCR) Parainfluenza 3 (PCR) Parainfluenza 4 (PCR) RSV (PCR) RSV RNA Qual (PCR) Entero/Rhino (PCR) SARS-CoV-2 RNA (RT-PCR) 04/22/21 04/22/21 04/22/21 12:31 14:36 14:36 WBC RBC Hgb Hct MCV MCH MCHC RDW Plt Count MPV Immature Gran % (Auto) Neut % (Auto) Lymph % (Auto) [place] % (Auto) Eos % (Auto) Baso % (Auto) Lymph # (Auto) [place] # (Auto) Eos # (Auto) Baso # (Auto) Abs Immat Gran (auto) Absolute Neuts (auto) Absolute Nucleated RBC Nucleated RBC % (auto) PT INR APTT Sodium 143 Potassium 4.1 Chloride 101 Carbon Dioxide 33 H Anion Gap 13 BUN 25 H Creatinine 1.17 Estim Creat Clear Calc 65.1 Estimated GFR > 60 POC Glucose Random Glucose 217 H Lactic Acid Calcium 9.1 Magnesium 2.3 Total Bilirubin 1.3 H Direct Bilirubin 0.6 H AST 26 ALT 20 Alkaline Phosphatase 165 H Troponin I High Sens B-Natriuretic Peptide Total Protein 7.4 Albumin 3.8 TSH 2.33 Respiratory Panel Kline Adenovirus (Rapid PCR) B.pert (TEM-PCR) B.parapertussis DNA PCR C. pneumoniae DNA (PCR) Coronavirus OC43 (PCR) Coronavirus HKU1 (PCR) Coronavirus 229E (PCR) COVID-19 (CHEPE) Negative COVID-19 Clin Com See Note Coronavirus NL63 (PCR) Human Metapneumovir PCR Influenza A (RT-PCR) Influenza Type A (PCR) Influenza B (RT-PCR) Influenza Type B (PCR) M. pneumoniae (PCR) Parainfluenza 1 (PCR) Parainfluenza 2 (PCR) Parainfluenza 3 (PCR) Parainfluenza 4 (PCR) RSV (PCR) RSV RNA Qual (PCR) Entero/Rhino (PCR) SARS-CoV-2 RNA (RT-PCR) 04/22/21 04/22/21 04/22/21 14:36 14:36 16:38 WBC RBC Hgb Hct MCV MCH MCHC RDW Plt Count MPV Immature Gran % (Auto) Neut % (Auto) Lymph % (Auto) [place] % (Auto) Eos % (Auto) Baso % (Auto) Lymph # (Auto) [place] # (Auto) Eos # (Auto) Baso # (Auto) Abs Immat Gran (auto) Absolute Neuts (auto) Absolute Nucleated RBC Nucleated RBC % (auto) PT INR APTT Sodium Potassium Chloride Carbon Dioxide Anion Gap BUN Creatinine Estim Creat Clear Calc Estimated GFR POC Glucose Random Glucose Lactic Acid 2.0 Calcium Magnesium Total Bilirubin Direct Bilirubin AST ALT Alkaline Phosphatase Troponin I High Sens 40.8 H B-Natriuretic Peptide Total Protein Albumin TSH Respiratory Panel Kline Adenovirus (Rapid PCR) B.pert (TEM-PCR) B.parapertussis DNA PCR C. pneumoniae DNA (PCR) Coronavirus OC43 (PCR) Coronavirus HKU1 (PCR) Coronavirus 229E (PCR) COVID-19 (CHEPE) COVID-19 Clin Com Coronavirus NL63 (PCR) Human Metapneumovir PCR Influenza A (RT-PCR) Influenza Type A (PCR) NEGATIVE Influenza B (RT-PCR) Influenza Type B (PCR) NEGATIVE M. pneumoniae (PCR) Parainfluenza 1 (PCR) Parainfluenza 2 (PCR) Parainfluenza 3 (PCR) Parainfluenza 4 (PCR) RSV (PCR) RSV RNA Qual (PCR) NEGATIVE Entero/Rhino (PCR) SARS-CoV-2 RNA (RT-PCR) NEGATIVE 04/22/21 04/22/21 04/22/21 17:02 20:30 Unknown WBC RBC Hgb Hct MCV MCH MCHC RDW Plt Count MPV Immature Gran % (Auto) Neut % (Auto) Lymph % (Auto) [place] % (Auto) Eos % (Auto) Baso % (Auto) Lymph # (Auto) [place] # (Auto) Eos # (Auto) Baso # (Auto) Abs Immat Gran (auto) Absolute Neuts (auto) Absolute Nucleated RBC Nucleated RBC % (auto) PT INR APTT Sodium Potassium Chloride Carbon Dioxide Anion Gap BUN Creatinine Estim Creat Clear Calc Estimated GFR POC Glucose 191 H 234 H Random Glucose Lactic Acid Calcium Magnesium Total Bilirubin Direct Bilirubin AST ALT Alkaline Phosphatase Troponin I High Sens B-Natriuretic Peptide Total Protein Albumin TSH Respiratory Panel Kline See Note Adenovirus (Rapid PCR) TNP B.pert (TEM-PCR) TNP B.parapertussis DNA PCR TNP C. pneumoniae DNA (PCR) TNP Coronavirus OC43 (PCR) TNP Coronavirus HKU1 (PCR) TNP Coronavirus 229E (PCR) TNP COVID-19 (CHEPE) COVID-19 Clin Com Coronavirus NL63 (PCR) TNP Human Metapneumovir PCR TNP Influenza A (RT-PCR) TNP Influenza Type A (PCR) Influenza B (RT-PCR) TNP Influenza Type B (PCR) M. pneumoniae (PCR) TNP Parainfluenza 1 (PCR) TNP Parainfluenza 2 (PCR) TNP Parainfluenza 3 (PCR) TNP Parainfluenza 4 (PCR) TNP RSV (PCR) TNP RSV RNA Qual (PCR) Entero/Rhino (PCR) TNP SARS-CoV-2 RNA (RT-PCR) TNP 04/23/21 04/23/21 04/23/21 06:57 06:57 06:57 WBC 7.7 RBC 3.63 L Hgb 10.8 L Hct 35.1 L MCV 96.7 MCH 29.8 MCHC 30.8 L RDW 14.3 Plt Count 104 L MPV 11.0 Immature Gran % (Auto) 0.3 Neut % (Auto) 75.1 H Lymph % (Auto) 13.1 L [place] % (Auto) 9.4 Eos % (Auto) 1.8 Baso % (Auto) 0.3 Lymph # (Auto) 1.0 L [place] # (Auto) 0.7 Eos # (Auto) 0.1 Baso # (Auto) 0.0 Abs Immat Gran (auto) 0.02 Absolute Neuts (auto) 5.8 Absolute Nucleated RBC 0.000 Nucleated RBC % (auto) 0.0 PT 49.1 H INR 4.2 H APTT Sodium 144 Potassium 4.0 Chloride 103 Carbon Dioxide 31 H Anion Gap 14 BUN 26 H Creatinine 1.04 Estim Creat Clear Calc 73.3 Estimated GFR > 60 POC Glucose Random Glucose 66 D Lactic Acid Calcium 8.6 Magnesium Total Bilirubin Direct Bilirubin AST ALT Alkaline Phosphatase Troponin I High Sens B-Natriuretic Peptide Total Protein Albumin TSH Respiratory Panel Kline Adenovirus (Rapid PCR) B.pert (TEM-PCR) B.parapertussis DNA PCR C. pneumoniae DNA (PCR) Coronavirus OC43 (PCR) Coronavirus HKU1 (PCR) Coronavirus 229E (PCR) COVID-19 (CHEPE) COVID-19 Clin Com Coronavirus NL63 (PCR) Human Metapneumovir PCR Influenza A (RT-PCR) Influenza Type A (PCR) Influenza B (RT-PCR) Influenza Type B (PCR) M. pneumoniae (PCR) Parainfluenza 1 (PCR) Parainfluenza 2 (PCR) Parainfluenza 3 (PCR) Parainfluenza 4 (PCR) RSV (PCR) RSV RNA Qual (PCR) Entero/Rhino (PCR) SARS-CoV-2 RNA (RT-PCR) 04/23/21 07:27 WBC RBC Hgb Hct MCV MCH MCHC RDW Plt Count MPV Immature Gran % (Auto) Neut % (Auto) Lymph % (Auto) [place] % (Auto) Eos % (Auto) Baso % (Auto) Lymph # (Auto) [place] # (Auto) Eos # (Auto) Baso # (Auto) Abs Immat Gran (auto) Absolute Neuts (auto) Absolute Nucleated RBC Nucleated RBC % (auto) PT INR APTT Sodium Potassium Chloride Carbon Dioxide Anion Gap BUN Creatinine Estim Creat Clear Calc Estimated GFR POC Glucose 67 Random Glucose Lactic Acid Calcium Magnesium Total Bilirubin Direct Bilirubin AST ALT Alkaline Phosphatase Troponin I High Sens B-Natriuretic Peptide Total Protein Albumin TSH Respiratory Panel Kline Adenovirus (Rapid PCR) B.pert (TEM-PCR) B.parapertussis DNA PCR C. pneumoniae DNA (PCR) Coronavirus OC43 (PCR) Coronavirus HKU1 (PCR) Coronavirus 229E (PCR) COVID-19 (CHEPE) COVID-19 Clin Com Coronavirus NL63 (PCR) Human Metapneumovir PCR Influenza A (RT-PCR) Influenza Type A (PCR) Influenza B (RT-PCR) Influenza Type B (PCR) M. pneumoniae (PCR) Parainfluenza 1 (PCR) Parainfluenza 2 (PCR) Parainfluenza 3 (PCR) Parainfluenza 4 (PCR) RSV (PCR) RSV RNA Qual (PCR) Entero/Rhino (PCR) SARS-CoV-2 RNA (RT-PCR) Imaging Radiologist's impression: Impressions Chest X-Ray 04/22/21 12:54 IMPRESSION: Enlarged heart and postoperative changes from aortic valve replacement. Elevated right hemidiaphragm. Assessment and Plan (1) Acute exacerbation of chronic obstructive airways disease: Status: Acute (2) Atrial fibrillation with rapid ventricular response: Status: Acute 75-year-old gentleman who has background history of atrial fibrillation on Coumadin and beta-nolberto presenting for COPD exacerbation. He is still mildly wheezy but improving. He is on Coumadin and metoprolol. Heart rates are in 90s right now. If he has tachycardia then Toprol-XL can be increased to 150 mg daily. I thing as his respiratory status improves he should have better rate control. He is on Coumadin and he has been given azithromycin. There is clearly an interaction and this will increase his INR further. Please consider changing him to doxycycline. Thank you for allowing me to participate in the care of your patient. Please feel free to contact me if you have any questions. Procedures Date of Service Date of Service: 04/23/21
[2021-04-23 11:22] VITALS: BP 132/65; PULSE 103; O2SAT 92
--- NOTE | 2021-04-23 12:24 | P.DS_ITS ---
DS: Providers Provider Date of Service: 04/23/21 Date of admission: 04/22/21 16:08 Primary care physician: Judah Pina MD Consults: 04/23/21 10:05 Consult to Cardiology Routine Consulting Provider: Karthik Wagner Reason for consultation: afib rvr Has provider been notified: No Attending physician on discharge: Re[facility] Discharging clinician: Ivana Dumas DS: Diagnosis Discharge Diagnosis (1) Acute respiratory failure with hypoxia: Status: Acute (2) Bronchitis: Status: Acute (3) Atrial fibrillation with rapid ventricular response: Status: Acute DS: Summary Hospital Course Hospital Course: HP as per admitting provider This is a 75-year-old male with multiple medical problems who presented with shortness of breath.? Patient states he is having shortness of breath for the past 2-3 days.? This has been associated with cough productive of clear phlegm.? He denies any associated fever or chills.? He did have an episode of dry heaving this morning but denies any abdominal pain, nausea, vomiting, diarrhea.? He denies any chest pain, palpitations.? On arrival to the emergency department he was noted to be hypoxic with an oxygen saturation of 80% on room air which improved with supplemental oxygen.? Chest x-ray demonstrated no evidence of pneumonia.? Lab work was relatively unremarkable, no leukocytosis.? Troponin was in the indeterminate range at 30.? Repeat pending at the time of admission.? BNP 333.? Patient has been compliant with his diuretics, denies any weight gain, no orthopnea, no change in lower extremity swelling.? He tested negative for COVID-19, RSV, flu.? In the emergency department he noted to be wheezing which improved with breathing treatment.? He was also given a dose of levofloxacin for possible bronchitis.? Heart rate was elevated an EKG revealed atrial fibrillation with rapid ventricular response.? Patient did not take his metoprolol this morning due to his dry heaving.? He received a dose of oral metoprolol with good effect.? Given his hypoxia the decision was made to admit him for further management . Acute respiratory failure with hypoxia secondary to acute bronchitis IV azithromycin initially then oral, will continue 6 more days at home Breathing treatments and oxygen. No oxygeb necessary at dischare Chronic Atrial fibrillation with rapid ventricular response Secondary to missing a.m. dose of metoprolol Increased metoprolol to 150mg daily Anticoagulation with Coumadin, INR elevated, hold until 04/25/21, check INR and may resume warfarin if INR therapeutic.? Time Spent with Patient Time attestation: Total time spent providing and/or coordinating discharge services: Discharge coordination time: Greater than 30 minutes Quality: Stroke Does the patient have a stroke diagnosis?: No Physical Exam Verdana 4l Vital Signs: Verdana 4d Verdana 4d Vital Signs: Verdana 4d Verdana 4Bd Last Vital Signs Verdana 4d [employer] Education Coordinator New 4d Religious Education Coordinator New 4d Temp 98.2 F 04/22/21 17:11 Religious Education Coordinator New 4d Pulse 103 H 04/23/21 11:22 Religious Education Coordinator NewNew 4d Resp 12 04/23/21 10:23 BP 132/65 04/23/21 11:22 Pulse Ox 92 04/23/21 11:22 BMI result Body Mass Index 38.7 Appearing in no acute distress head is normocephalic atraumatic eyes pupils are PERRLA sclera is anicteric mouth throat mucous membranes are intact and moist neck is supple no lymphadenopathy, no JVD noted lung sounds rhonchi heart regular rate rhythm, clear S1, S2 positive bowel sounds, abdomen is soft, nontender neuro patient is alert x3, no focal deficits DS: Data Data Completed and Pending Labs on day of discharge: Laboratory Results - last 24 hr 04/22/21 04/22/21 04/22/21 12:30 12:30 12:30 WBC 8.1 RBC 3.86 L Hgb 11.6 L Hct 37.1 L MCV 96.1 MCH 30.1 MCHC 31.3 RDW 14.3 Plt Count 117 L MPV 11.8 Immature Gran % (Auto) 0.2 Neut % (Auto) 79.4 H Lymph % (Auto) 11.6 L Talbot % (Auto) 7.8 Eos % (Auto) 0.6 Baso % (Auto) 0.4 Lymph # (Auto) 0.9 L Talbot # (Auto) 0.6 Eos # (Auto) 0.1 Baso # (Auto) 0.0 Abs Immat Gran (auto) 0.02 Absolute Neuts (auto) 6.4 Absolute Nucleated RBC 0.000 Nucleated RBC % (auto) 0.0 PT 44.7 H INR 3.8 H APTT 53.6 H Sodium Potassium Chloride Carbon Dioxide Anion Gap BUN Creatinine Estim Creat Clear Calc Estimated GFR POC Glucose Random Glucose Lactic Acid Calcium Magnesium Total Bilirubin Direct Bilirubin AST ALT Alkaline Phosphatase Troponin I High Sens 30.6 B-Natriuretic Peptide 334 H Total Protein Albumin TSH Respiratory Panel Kline Adenovirus (Rapid PCR) B.pert (TEM-PCR) B.parapertussis DNA PCR C. pneumoniae DNA (PCR) Coronavirus OC43 (PCR) Coronavirus HKU1 (PCR) Coronavirus 229E (PCR) COVID-19 (CHEPE) COVID-19 Clin Com Coronavirus NL63 (PCR) Human Metapneumovir PCR Influenza A (RT-PCR) Influenza Type A (PCR) Influenza B (RT-PCR) Influenza Type B (PCR) M. pneumoniae (PCR) Parainfluenza 1 (PCR) Parainfluenza 2 (PCR) Parainfluenza 3 (PCR) Parainfluenza 4 (PCR) RSV (PCR) RSV RNA Qual (PCR) Entero/Rhino (PCR) SARS-CoV-2 RNA (RT-PCR) 04/22/21 04/22/21 04/22/21 12:31 14:36 14:36 WBC RBC Hgb Hct MCV MCH MCHC RDW Plt Count MPV Immature Gran % (Auto) Neut % (Auto) Lymph % (Auto) Talbot % (Auto) Eos % (Auto) Baso % (Auto) Lymph # (Auto) Talbot # (Auto) Eos # (Auto) Baso # (Auto) Abs Immat Gran (auto) Absolute Neuts (auto) Absolute Nucleated RBC Nucleated RBC % (auto) PT INR APTT Sodium 143 Potassium 4.1 Chloride 101 Carbon Dioxide 33 H Anion Gap 13 BUN 25 H Creatinine 1.17 Estim Creat Clear Calc 65.1 Estimated GFR > 60 POC Glucose Random Glucose 217 H Lactic Acid Calcium 9.1 Magnesium 2.3 Total Bilirubin 1.3 H Direct Bilirubin 0.6 H AST 26 ALT 20 Alkaline Phosphatase 165 H Troponin I High Sens B-Natriuretic Peptide Total Protein 7.4 Albumin 3.8 TSH 2.33 Respiratory Panel Kline Adenovirus (Rapid PCR) B.pert (TEM-PCR) B.parapertussis DNA PCR C. pneumoniae DNA (PCR) Coronavirus OC43 (PCR) Coronavirus HKU1 (PCR) Coronavirus 229E (PCR) COVID-19 (CHEPE) Negative COVID-19 Clin Com See Note Coronavirus NL63 (PCR) Human Metapneumovir PCR Influenza A (RT-PCR) Influenza Type A (PCR) Influenza B (RT-PCR) Influenza Type B (PCR) M. pneumoniae (PCR) Parainfluenza 1 (PCR) Parainfluenza 2 (PCR) Parainfluenza 3 (PCR) Parainfluenza 4 (PCR) RSV (PCR) RSV RNA Qual (PCR) Entero/Rhino (PCR) SARS-CoV-2 RNA (RT-PCR) 04/22/21 04/22/21 04/22/21 14:36 14:36 16:38 WBC RBC Hgb Hct MCV MCH MCHC RDW Plt Count MPV Immature Gran % (Auto) Neut % (Auto) Lymph % (Auto) Talbot % (Auto) Eos % (Auto) Baso % (Auto) Lymph # (Auto) Talbot # (Auto) Eos # (Auto) Baso # (Auto) Abs Immat Gran (auto) Absolute Neuts (auto) Absolute Nucleated RBC Nucleated RBC % (auto) PT INR APTT Sodium Potassium Chloride Carbon Dioxide Anion Gap BUN Creatinine Estim Creat Clear Calc Estimated GFR POC Glucose Random Glucose Lactic Acid 2.0 Calcium Magnesium Total Bilirubin Direct Bilirubin AST ALT Alkaline Phosphatase Troponin I High Sens 40.8 H B-Natriuretic Peptide Total Protein Albumin TSH Respiratory Panel Kline Adenovirus (Rapid PCR) B.pert (TEM-PCR) B.parapertussis DNA PCR C. pneumoniae DNA (PCR) Coronavirus OC43 (PCR) Coronavirus HKU1 (PCR) Coronavirus 229E (PCR) COVID-19 (CHEPE) COVID-19 Clin Com Coronavirus NL63 (PCR) Human Metapneumovir PCR Influenza A (RT-PCR) Influenza Type A (PCR) NEGATIVE Influenza B (RT-PCR) Influenza Type B (PCR) NEGATIVE M. pneumoniae (PCR) Parainfluenza 1 (PCR) Parainfluenza 2 (PCR) Parainfluenza 3 (PCR) Parainfluenza 4 (PCR) RSV (PCR) RSV RNA Qual (PCR) NEGATIVE Entero/Rhino (PCR) SARS-CoV-2 RNA (RT-PCR) NEGATIVE 04/22/21 04/22/21 04/22/21 17:02 20:30 Unknown WBC RBC Hgb Hct MCV MCH MCHC RDW Plt Count MPV Immature Gran % (Auto) Neut % (Auto) Lymph % (Auto) Talbot % (Auto) Eos % (Auto) Baso % (Auto) Lymph # (Auto) Talbot # (Auto) Eos # (Auto) Baso # (Auto) Abs Immat Gran (auto) Absolute Neuts (auto) Absolute Nucleated RBC Nucleated RBC % (auto) PT INR APTT Sodium Potassium Chloride Carbon Dioxide Anion Gap BUN Creatinine Estim Creat Clear Calc Estimated GFR POC Glucose 191 H 234 H Random Glucose Lactic Acid Calcium Magnesium Total Bilirubin Direct Bilirubin AST ALT Alkaline Phosphatase Troponin I High Sens B-Natriuretic Peptide Total Protein Albumin TSH Respiratory Panel Kline See Note Adenovirus (Rapid PCR) TNP B.pert (TEM-PCR) TNP B.parapertussis DNA PCR TNP C. pneumoniae DNA (PCR) TNP Coronavirus OC43 (PCR) TNP Coronavirus HKU1 (PCR) TNP Coronavirus 229E (PCR) TNP COVID-19 (CHEPE) COVID-19 Clin Com Coronavirus NL63 (PCR) TNP Human Metapneumovir PCR TNP Influenza A (RT-PCR) TNP Influenza Type A (PCR) Influenza B (RT-PCR) TNP Influenza Type B (PCR) M. pneumoniae (PCR) TNP Parainfluenza 1 (PCR) TNP Parainfluenza 2 (PCR) TNP Parainfluenza 3 (PCR) TNP Parainfluenza 4 (PCR) TNP RSV (PCR) TNP RSV RNA Qual (PCR) Entero/Rhino (PCR) TNP SARS-CoV-2 RNA (RT-PCR) TNP 04/23/21 04/23/21 04/23/21 06:57 06:57 06:57 WBC 7.7 RBC 3.63 L Hgb 10.8 L Hct 35.1 L MCV 96.7 MCH 29.8 MCHC 30.8 L RDW 14.3 Plt Count 104 L MPV 11.0 Immature Gran % (Auto) 0.3 Neut % (Auto) 75.1 H Lymph % (Auto) 13.1 L Talbot % (Auto) 9.4 Eos % (Auto) 1.8 Baso % (Auto) 0.3 Lymph # (Auto) 1.0 L Talbot # (Auto) 0.7 Eos # (Auto) 0.1 Baso # (Auto) 0.0 Abs Immat Gran (auto) 0.02 Absolute Neuts (auto) 5.8 Absolute Nucleated RBC 0.000 Nucleated RBC % (auto) 0.0 PT 49.1 H INR 4.2 H APTT Sodium 144 Potassium 4.0 Chloride 103 Carbon Dioxide 31 H Anion Gap 14 BUN 26 H Creatinine 1.04 Estim Creat Clear Calc 73.3 Estimated GFR > 60 POC Glucose Random Glucose 66 D Lactic Acid Calcium 8.6 Magnesium Total Bilirubin Direct Bilirubin AST ALT Alkaline Phosphatase Troponin I High Sens B-Natriuretic Peptide Total Protein Albumin TSH Respiratory Panel Kline Adenovirus (Rapid PCR) B.pert (TEM-PCR) B.parapertussis DNA PCR C. pneumoniae DNA (PCR) Coronavirus OC43 (PCR) Coronavirus HKU1 (PCR) Coronavirus 229E (PCR) COVID-19 (CHEPE) COVID-19 Clin Com Coronavirus NL63 (PCR) Human Metapneumovir PCR Influenza A (RT-PCR) Influenza Type A (PCR) Influenza B (RT-PCR) Influenza Type B (PCR) M. pneumoniae (PCR) Parainfluenza 1 (PCR) Parainfluenza 2 (PCR) Parainfluenza 3 (PCR) Parainfluenza 4 (PCR) RSV (PCR) RSV RNA Qual (PCR) Entero/Rhino (PCR) SARS-CoV-2 RNA (RT-PCR) 04/23/21 07:27 WBC RBC Hgb Hct MCV MCH MCHC RDW Plt Count MPV Immature Gran % (Auto) Neut % (Auto) Lymph % (Auto) Talbot % (Auto) Eos % (Auto) Baso % (Auto) Lymph # (Auto) Talbot # (Auto) Eos # (Auto) Baso # (Auto) Abs Immat Gran (auto) Absolute Neuts (auto) Absolute Nucleated RBC Nucleated RBC % (auto) PT INR APTT Sodium Potassium Chloride Carbon Dioxide Anion Gap BUN Creatinine Estim Creat Clear Calc Estimated GFR POC Glucose 67 Random Glucose Lactic Acid Calcium Magnesium Total Bilirubin Direct Bilirubin AST ALT Alkaline Phosphatase Troponin I High Sens B-Natriuretic Peptide Total Protein Albumin TSH Respiratory Panel Kline Adenovirus (Rapid PCR) B.pert (TEM-PCR) B.parapertussis DNA PCR C. pneumoniae DNA (PCR) Coronavirus OC43 (PCR) Coronavirus HKU1 (PCR) Coronavirus 229E (PCR) COVID-19 (CHEPE) COVID-19 Clin Com Coronavirus NL63 (PCR) Human Metapneumovir PCR Influenza A (RT-PCR) Influenza Type A (PCR) Influenza B (RT-PCR) Influenza Type B (PCR) M. pneumoniae (PCR) Parainfluenza 1 (PCR) Parainfluenza 2 (PCR) Parainfluenza 3 (PCR) Parainfluenza 4 (PCR) RSV (PCR) RSV RNA Qual (PCR) Entero/Rhino (PCR) SARS-CoV-2 RNA (RT-PCR) Discharge Plan Discharge Anticipated Discharge Date/Time: 04/23/21 12:14 Patient Disposition: Home, Self-Care Discharge Diagnosis: Afib rvr Bronchitis Referrals: Judah Pina MD [Primary Care Provider] - 1 Week Discharge Medications: New metoprolol succinate 100 mg Tablet Extended Release 24 Hr 150 mg PO DAILY Qty: 30 RF: 0 azithromycin 500 mg tablet 500 mg PO DAILY 6 Days Qty: 6 RF: 0 Continued atorvastatin 40 mg tablet 1 tab PO BEDTIME RF: 0 bumetanide 2 mg tablet 1 tab PO BID RF: 0 aspirin 81 mg tablet,delayed release (DR/EC) 1 tab PO BEDTIME RF: 0 levothyroxine 25 mcg tablet 1 tab PO DAILY RF: 0 gabapentin 300 mg capsule 1 cap PO TID RF: 0 lisinopril 40 mg tablet 1 tab PO DAILY RF: 0 insulin aspart U-100 [Novolog Flexpen U-100 Insulin] 100 unit/mL (3 mL) insulin pen See Protocol sliding scale dose subcut QIDACHS RF: 0 Lantus Solostar U-100 Insulin 100 unit/mL (3 mL) insulin pen 36 unit subcut BEDTIME RF: 0 multivitamin with folic acid [Tab-A-Priscilla] 400 mcg tablet 1 tab PO DAILY RF: 0 Held warfarin 5 mg tablet 5 mg PO DAILY RF: 0 Hold Instructions: Resume on 04/25/21. Discontinued metoprolol succinate 100 mg tablet extended release 24 hr 1 tab PO DAILY RF: 0 Discharge Orders: Discharge Order (Routine); Ordered 04/23/21 Ordered By: Ivana Dumas Diet: advance to usual diet Activity on Discharge: As tolerated Stand Alone Forms: Patient Portal Discharge page Other Ambulatory Orders: Prothrombin Time INR (Routine) Timeframe: [id number] Facility: [facility] - Location: Laboratory Ordered By: Ivana Dumas Care Plan Goals: Normalized INR No further hospitalizations Health Concerns: Afib rvr Acute respiratory failure with hypoxia secondary to Bronchitis Plan of Treatment: Follow up with your primary care provider as needed Check your INR on Sunday and hold your warfarin 04/23/21 and 04/24/21. May resume if INR is between 2.0-3.0 Your metoprolol has been increased to 150 mg daily Assessment: See discharge summary
[2021-04-23 13:05] LABS: Glucose, Whole Blood 137 mg/dL (60-115)
--- NOTE | 2021-04-23 13:49 | MHC.CM.PN ---
CM MET WITH PT TO DISCUSS HIS DC. PT REPORTS HE LIVES IN A [facility] AT [address] [place] [address] [place]. HE REPORTS HE HAS [facility] AND A CM CHECKS IN ON HIM REGULARLY. PT REPORTS HE DOES NOT HAVE A RIDE HOME AND USUALLY TAKES AN AMBULANCE OR [facility]IR VAN REFERRAL SENT TO [facility]AN TRANSPORT [facility] REPORTS SURGICAL MANAGER WILL BE AROUND 1600 HOURS, HOWEVER THEY WILL COME SOONER IF POSSIBLE
[2021-04-23 14:42] VITALS: PULSE 103; RESP 18; O2SAT 92
[2021-04-23 18:03] LABS: Glucose, Whole Blood 150 mg/dL (60-115)
[2021-04-23 18:18] VITALS: BP 129/60; PULSE 110; RESP 18; TEMP 36.8; O2SAT 91
[2021-04-23] MEDS: Aspirin Enteric Coated 81 MG TABLET.DR PO (20:28)
[2021-04-23] MEDS: Atorvastatin Calcium 40 MG TABLET PO (20:28)
--- NOTE | 2021-04-24 00:34 | PC.NURSE ---
Assisting primary RN- pt dc to [facility] via EMS at approx 2230. Sent in stable condition w/ all belongings and paperwork
[2021-04-24 08:01] LABS: Glucose, Whole Blood 229 mg/dL (60-115)
== END 2021-04-23 22:45 | disposition home or self-care (01) | DRG 190 ==
LOC: HO.ED 13:48 → HO.EDOVER 16:17
PROVIDERS: Physician Assistant; Admitting Provider Physician Assistant Medical; Emergency Provider Emergency Medicine Emergency Medical Services; PCP Internal Medicine; Visit Provider Nurse Practitioner Acute Care
DX: J44.0 Chronic obstructive pulmonary disease with (acute) lower respiratory infection (principal); J96.01 Acute respiratory failure with hypoxia; I48.20 Chronic atrial fibrillation, unspecified; J20.9 Acute bronchitis, unspecified; J44.1 Chronic obstructive pulmonary disease with (acute) exacerbation; E11.42 Type 2 diabetes mellitus with diabetic polyneuropathy; I50.9 Heart failure, unspecified; R79.1 Abnormal coagulation profile; Z95.2 Presence of prosthetic heart valve; Z20.822 Contact with and (suspected) exposure to COVID-19; Z79.4 Long term (current) use of insulin; Z79.01 Long term (current) use of anticoagulants; Z79.899 Other long term (current) drug therapy; Z66 Do not resuscitate
CPT/HCPCS: 0241U; 36415; 71045; 80048; 80076; 82947; 83605; 83735; 83880; 84443; 84484; 85025; 85610; 85730; 87040; 87633; 87635; 93005; 94640; 96365; 97162; 99284; 99291; J0456; J1956

== ENCOUNTER 2021-08-09 10:34 | Outpatient (REF) | payer OTHER, MEDICAID, SELFPAY | END 2021-08-09 10:35 | disposition home or self-care (01) | LOC: HO.LAB 10:34 | PROVIDERS: PCP Physician Assistant; Visit Provider Nurse Practitioner Family | DX: I48.91 Unspecified atrial fibrillation (principal); I35.0 Nonrheumatic aortic (valve) stenosis; Z51.81 Encounter for therapeutic drug level monitoring; Z79.01 Long term (current) use of anticoagulants | CPT/HCPCS: 85610; 99202 ==

== ENCOUNTER 2021-08-09 12:40 | Outpatient (REF) | payer OTHER, MEDICAID, SELFPAY ==
[2021-08-09 12:56] LABS: COVID-19 Test Positive (Negative)
== END 2021-08-09 12:41 | disposition home or self-care (01) ==
LOC: HO.LAB 12:40
PROVIDERS: Visit Provider Internal Medicine
DX: Z20.822 Contact with and (suspected) exposure to COVID-19 (principal)
CPT/HCPCS: 87635; C9803

== ENCOUNTER 2021-08-12 11:06 | Emergency (ER) | payer OTHER, SELFPAY ==
--- NOTE | ~2021-08-12 | XR_ITS ---
EXAMINATION: XR CHEST CLINICAL INFORMATION: Cough, COVID. COMPARISON: 04/22/2021 chest radiograph. TECHNIQUE: 2 views of the chest were obtained. FINDINGS: There is mild elevation of the right hemidiaphragm with associated mild infrahilar vascular crowding without significant change. The lungs are otherwise clear. The heart shows an aortic valve prosthesis in place. Multilevel sternotomy wires are again noted. The second-most superior wire is fractured on the right without significant displacement or associated abnormality. XR/XR chest 2V IMPRESSION: No acute cardiopulmonary process.
--- NOTE | ~2021-08-12 | CT_ITS ---
EXAMINATION: CT CHEST WITHOUT CONTRAST CLINICAL INFORMATION: Suspected pneumonia. COMPARISON: Chest radiograph done earlier today. TECHNIQUE: Multidetector volumetric CT imaging of the chest was done. Axial MIP volume rendering provided. Sagittal and coronal reformatted images were obtained. This CT examination was performed using dose optimization techniques as appropriate, variously including the following: *Automated exposure control *Adjustment of mA and/or kV according to patient size (this includes techniques or standardized protocols for targeted exams where dose is matched to indication/reason for exam; i.e. 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 Extensive atherosclerotic calcification is seen within the splenic artery. LUNGS: A few sub-5 mm scattered bilateral peripheral noncalcified lung nodules are noted (see the oneil images). No evidence of any dense airspace consolidation or discrete mass or suspicious lung nodule is seen. The tracheobronchial tree is patent. MEDIASTINUM: The mediastinum is normal. Atherosclerotic disease of the aorta and is branches including coronary artery calcifications are present. There is mild cardiomegaly present. PLEURA: There is no pleural effusion. No pleural mass or thickening. AXILLA: No lymphadenopathy. UPPER ABDOMEN: Extensive atherosclerotic disease including extensive splenic arterial calcifications are noted. OSSEOUS STRUCTURES: Increased midthoracic kyphosis and moderate to severe multilevel degenerative spondylosis related changes are present. CT/CT chest wo con IMPRESSION: 1. No radiographic evidence of pneumonia. 2. Incidental note is made of a few sub-5 mm scattered bilateral peripheral noncalcified lung nodules, indeterminate etiology. 3. Atherosclerotic disease of the aorta and is branches including coronary artery calcifications and extensive splenic artery calcifications within the upper abdomen. 4. Increased midthoracic kyphosis and moderate to severe multilevel degenerative spondylosis. Fleischner guidelines were followed.
[2021-08-12 11:11] VITALS: BP 131/70; PULSE 74; O2SAT 94
[2021-08-12 11:13] VITALS: BP 139/61; PULSE 83; RESP 20; TEMP 36.8; O2SAT 95; BMI 39.9
--- NOTE | 2021-08-12 14:38 | ED_ITS ---
HPI - General Adult General Chief complaint: Upper Respiratory Symptoms Stated complaint: pt covid + Time Seen by Provider: 08/12/21 14:36 Source: patient Mode of arrival: ambulatory Limitations: no limitations History of Present Illness HPI narrative: 76-year-old male who tested positive for Covid 2 days ago presents for 2 days of cough, body aches, increasing clear phlegm. He has had subjective fevers. He has had diarrhea 2 days ago that has now resolved He lives in a alf, states that the bed hurts his body and it is hard to sleep. States the alf sent him here because he is COVID positive and because he has not been on his Coumadin. Patient had a valve replacement in 2008 in [place], [place]. Is anticoagulated on warfarin. Four days ago he took 7.5 mg, 3 days ago he took 7.5mg, yesterday he took 5mg. He supposed to see his PCP to get his Coumadin adjusted but it was canceled due to his COVID positive status. Patient denies chest pain, shortness of breath, vomiting, nausea, abdominal logan n, dark tarry or bloody stools, urinary frequency or hesitancy, dysuria Related Data Home Medications Medication Instructions Recorded Confirmed aspirin 81 mg tablet,delayed 1 tab PO BEDTIME 04/22/21 08/09/21 release atorvastatin 40 mg tablet 1 tab PO BEDTIME 04/22/21 08/09/21 bumetanide 2 mg tablet 1 tab PO BID 04/22/21 08/09/21 gabapentin 300 mg capsule 1 cap PO TID 04/22/21 08/09/21 insulin aspart U-100 100 unit/mL See Protocol SUBCUT QIDACHS 04/22/21 08/09/21 (3 mL) subcutaneous pen (Novolog Flexpen U-100 Insulin aspart) insulin glargine 100 unit/mL (3 36 unit SUBCUT BEDTIME 04/22/21 08/09/21 mL) subcutaneous pen (Lantus Solostar U-100 Insulin) levothyroxine 25 mcg tablet 1 tab PO DAILY 04/22/21 08/09/21 lisinopril 40 mg tablet 1 tab PO DAILY 04/22/21 08/09/21 multivitamin with folic acid 400 1 tab PO DAILY 04/22/21 08/09/21 mcg tablet (Tab-A-Priscilla) warfarin 5 mg tablet 5 mg PO DAILY 04/22/21 08/09/21 blood-glucose meter (FreeStyle #1 ea 07/21/21 07/21/21 Lite Meter) lancets 28 gauge (FreeStyle #100 ea 07/21/21 07/21/21 Lancets) pen needle, diabetic 33 gauge x #100 ea 07/21/21 07/21/21 1/ (Comfort EZ Pen Mccrory) warfarin 2.5 mg tablet 2.5 mg PO DAILY 08/09/21 08/09/21 Previous Rx's Medication Instructions Recorded flash glucose sensor (FreeStyle #1 ea 07/21/21 Valeria 2 Sensor) albuterol sulfate 90 mcg/actuation 2 puff INHALATION Q4-6H #8.5 g 08/12/21 aerosol inhaler metoprolol succinate 100 mg 100 mg PO QAM #30 tab 08/12/21 tablet,extended release 24 hr Allergies Allergy/AdvReac Type Severity Reaction Status Date / Time No Known Allergies Allergy Verified 08/09/21 11:36 Review of Systems Constitutional: Constitutional: Reports body ache(s), Denies chills, Denies fatigue, Reports fever(s), Denies headache(s), Denies malaise and Denies weakness Eyes: Eyes: Denies blurry vision and Denies diplopia ENT: Denies vertigo, Denies dizziness, Denies otalgia, Denies headache(s), Denies mouth pain, Denies post nasal drip, Denies sinus pain, Denies sinus pressure, Denies sore throat and Denies throat swelling Cardiovascular: Cardiovascular: Denies chest pain, Denies syncope, Denies leg edema, Denies lightheadedness, Denies Loss of Consciousness, Denies palpitations and Denies dyspnea Respiratory: Respiratory: Reports chest congestion, Reports cough, Reports excessive phlegm production, Denies dyspnea and Denies wheezing Gastrointestinal: Gastrointestinal: Denies abdominal pain, Denies melena, Denies hematochezia, Denies coffee ground emesis, Denies constipation, Denies diarrhea, Denies nausea and Denies vomiting Genitourinary: Genitourinary: Reports no additional male genitourinary complaints Musculoskeletal: Musculoskeletal: Reports myalgias Neurologic: Denies confusion, Denies vertigo, Denies dizziness, Denies syncope, Denies headache(s) and Denies weakness Psychiatric: Psychiatric: Denies anxiety, Denies confusion and Denies depression Endocrine: Endocrine: Denies fatigue and Denies palpitations Allergic/Immunologic: Allergic/Immunologic: Denies throat swelling and Denies wheezing [facility] Past Medical History Medical History (Updated 08/12/21 @ 17:38 by ELVIE Baker) A-fib Aortic stenosis Carotid artery disease COPD (chronic obstructive pulmonary disease) Drop foot gait Heart failure HLD (hyperlipidemia) Hypertension Neuropathy FARNAZ (obstructive sleep apnea) Pneumonia Surgical History (Updated 07/21/21 @ 09:40 by OUSMANE Oates) History of aortic valve replacement History of carpal tunnel surgery History of eye surgery History of surgery on arm Family History Family History (Updated 07/21/21 @ 09:40 by OUSMANE Oates) Other Substance use disorder Social History Social History Housing: Homeless (alf currently) Alcohol intake: never Patient Tobacco Use Status: Never used Tobacco e-Cigarette/Vaping Use: Never Used Second Hand Smoke Exposure: No Advance Directives: No Advance Directives Information Provided: No service: No Current occupational status: disabled Current occupational exposures/hazards: No Cognitive needs: No Hearing needs: No Vision needs: No Physical Exam ED Vital Signs: Vital Signs - 24 hr 08/12/21 11:13 08/12/21 15:25 08/12/21 16:11 Temperature 98.3 F 98.0 F Pulse Rate 83 81 85 Respiratory Rate 20 18 16 Blood Pressure 139/61 142/69 H Pulse Oximetry 95 94 BMI result Body Mass Index 39.9 Const General: comfortable, no acute distress, alert and awake; No confusion Nutritional Appearance: obese morbidly obese Orientation/consciousness: patient oriented x3 and No confusion Limitations: no limitations HENMT Head: Yes normal to inspection, Yes normocephalic and Yes atraumatic Ears: hearing grossly normal bilaterally, external ears normal, TM's normal bilaterally and EAC's normal General nose exam: Normal external nose present Face and sinus: Yes normal facial exam and Yes sinuses nontender Mouth: Normal oral and palatal mucosa present Throat: Yes posterior oropharynx normal Eyes Conjunctivae: conjunctivae normal Pupils: Equal, round and reactive pupils present EOM: EOMs intact bilaterally Neck Neck: Yes full ROM, Yes no lymphadenopathy and Yes supple Resp Effort & Inspection: normal respiratory effort and able to speak in complete sentences Auscultation: clear to auscultation bilaterally, crackles diffuse, no rales, no rhonchi and wheezes throughout Cardio Rate: regular rate Rhythm: regular rhythm Heart sounds: S1 normal heart sound present and S2 normal heart sound present GI Inspection: Yes Abdominal panniculus present and Yes obesity Palpation (GI): Soft to palpation, nontender, no guarding and not rigid Percussion: Yes normal to percussion Auscultation: normal bowel sounds Skin General skin exam: no rashes or lesions noted Neuro General: patient oriented x3 and No confusion Cranial nerves: Yes Equal, round and reactive pupils present Extrem General: Yes normal to inspection and Yes full ROM Psych Appearance: grossly normal Affect: normal affect Attitude: cooperative Thought process: Normal thought process present Course Course Course Narrative: 76-year-old male presents for COVID positive and anticoagulation therapy problems. Patient has a past medical history of atrial fibrillation, COPD, diabetes, aortic stenosis, pneumonia, heart failure, carotid artery stenosis, and valve replacement on warfarin On exam, patient is afebrile, satting 95% on room air, respirations 18. Lungs have fine rales throughout, diffusely wheezy. No work of breathing, no respiratory distress Chest x-ray is negative, will get CT of chest. Will get nebulizer, venous blood gas, labs, INR, BNP, repeat COVID FINDINGS: There is mild elevation of the right hemidiaphragm with associated mild infrahilar vascular crowding without significant change. The lungs are otherwise clear. The heart shows an aortic valve prosthesis in place. Multilevel sternotomy wires are again noted. The second-most superior wire is fractured on the right without significant displacement or associated abnormality. XR/XR chest 2V IMPRESSION: No acute cardiopulmonary process. Reevaluation(s) Reevaluation #1: Patient still COVID positive, no leukocytosis, H&H is 11.7 in 37.3, platelets 114, INR 1.4, PTT is normal, BNP only mildly elevated at 253, blood glucose 214, creatinine 1.41. VBG shows a pH of 7.43 with a bicarb of 40. Will get chest CT as patient has lung sounds Waiting chest CT Reevaluation #2: CT/CT chest wo con IMPRESSION: 1. No radiographic evidence of pneumonia. 2. Incidental note is made of a few sub-5 mm scattered bilateral peripheral noncalcified lung nodules, indeterminate etiology. 3. Atherosclerotic disease of the aorta and is branches including coronary artery calcifications and extensive splenic artery calcifications within the upper abdomen. 4. Increased midthoracic kyphosis and moderate to severe multilevel degenerative spondylosis.? Discussed pt's subtherapeutic WArfarin dosing with Dr Cisneros. He is INR 1.2, should be 2.5-3.5 He suggested 1 shot of Lovenox, then 7.5mg Warfarin until he sees his PCP Patient is not hypoxic, lungs are clear after nebulizer treatment, CT shows no pneumonia, will have patient follow-up with primary care provider, prescribed albuterol inhaler, will give warfarin instructions Counseled patient if he had chest pain, shortness of breath, worsening cough, fevers, return to emergency room Patient verbalized agreement understanding of the plan Medical Decision Making Lab Data Result diagrams: 08/12/21 15:52 08/12/21 15:52 Labs: Lab Results 08/12/21 08/12/21 08/12/21 Range/Units 15:52 15:52 15:52 WBC 5.5 (4.8-10.8) X10*3/uL RBC 4.03 L (4.60-5.80) X10*6/uL Hgb 11.7 L (14.0-18.0) g/dl Hct 37.3 L (42.0-52.0) % MCV 92.6 (80.0-98.0) fL MCH 29.0 (27.0-33.0) pg MCHC 31.4 (31.0-36.0) g/dl RDW 15.5 (11.0-16.0) % Plt Count 114 L (160-400) X10*3/uL MPV 11.0 (9.4-12.4) fL Immature Gran % (Auto) 0.2 (0.0-0.4) % Neut % (Auto) 31.8 L (45-73) % Lymph % (Auto) 55.6 H (20-40) % [place] % (Auto) 7.2 (2-11) % Eos % (Auto) 4.8 H (0-4) % Baso % (Auto) 0.4 (0-2) % Lymph # (Auto) 3.0 (1.2-4.9) X10*3/uL [place] # (Auto) 0.4 (0.1-1.2) X10*3/uL Eos # (Auto) 0.3 (0.0-0.4) X10*3/uL Baso # (Auto) 0.0 (0.0-0.2) X10*3/uL Abs Immat Gran (auto) 0.01 (0.00-0.03) X10*3/uL Absolute Neuts (auto) 1.7 L (2.0-8.3) x10*3/uL Absolute Nucleated RBC 0.000 (0.0-0.012) X10*3/uL Nucleated RBC % (auto) 0.0 (0.0-0.2) /100WBC PT 14.1 H (9.9-13.0) SEC INR 1.2 H D (0.9-1.1) APTT 34.2 (24.1-38.0) SEC VBG pH (7.32-7.43) VBG pCO2 mmHg VBG pO2 mmHg VBG HCO3 (22-26) mmol/L VBG O2 Saturation % VBG Base Excess mmol/L Sodium 145 (135-145) mmol/L Potassium 4.2 (3.3-5.1) mmol/L Chloride 104 (96-108) mmol/L Carbon Dioxide 33 H (22-29) mmol/L Anion Gap 12 (12-20) BUN 39 H (9-16) mg/dL Creatinine 1.41 H (0.5-1.4) mg/dL Estim Creat Clear Calc 50.7 Estimated GFR 49 Random Glucose 214 H D (60-115) mg/dL Calcium 8.6 (8.4-10.2) mg/dL Total Bilirubin 0.6 (0.0-1.0) mg/dL AST 53 H (5-37) U/L ALT 43 H (0-40) U/L Alkaline Phosphatase 121 H D (39-117) U/L B-Natriuretic Peptide (<100) pg/mL Total Protein 6.9 (6.5-8.0) g/dL Albumin 3.5 (3.5-5.0) g/dL COVID-19 (CHEPE) (Negative) COVID-19 Clin Com 08/12/21 08/12/21 08/12/21 Range/Units 15:52 15:53 15:54 WBC (4.8-10.8) X10*3/uL RBC (4.60-5.80) X10*6/uL Hgb (14.0-18.0) g/dl Hct (42.0-52.0) % MCV (80.0-98.0) fL MCH (27.0-33.0) pg MCHC (31.0-36.0) g/dl RDW (11.0-16.0) % Plt Count (160-400) X10*3/uL MPV (9.4-12.4) fL Immature Gran % (Auto) (0.0-0.4) % Neut % (Auto) (45-73) % Lymph % (Auto) (20-40) % [place] % (Auto) (2-11) % Eos % (Auto) (0-4) % Baso % (Auto) (0-2) % Lymph # (Auto) (1.2-4.9) X10*3/uL [place] # (Auto) (0.1-1.2) X10*3/uL Eos # (Auto) (0.0-0.4) X10*3/uL Baso # (Auto) (0.0-0.2) X10*3/uL Abs Immat Gran (auto) (0.00-0.03) X10*3/uL Absolute Neuts (auto) (2.0-8.3) x10*3/uL Absolute Nucleated RBC (0.0-0.012) X10*3/uL Nucleated RBC % (auto) (0.0-0.2) /100WBC PT (9.9-13.0) SEC INR (0.9-1.1) APTT (24.1-38.0) SEC VBG pH 7.43 (7.32-7.43) VBG pCO2 60 mmHg VBG pO2 59 mmHg VBG HCO3 40 H (22-26) mmol/L VBG O2 Saturation 84.0 % VBG Base Excess 14.0 mmol/L Sodium (135-145) mmol/L Potassium (3.3-5.1) mmol/L Chloride (96-108) mmol/L Carbon Dioxide (22-29) mmol/L Anion Gap (12-20) BUN (9-16) mg/dL Creatinine (0.5-1.4) mg/dL Estim Creat Clear Calc Estimated GFR Random Glucose (60-115) mg/dL Calcium (8.4-10.2) mg/dL Total Bilirubin (0.0-1.0) mg/dL AST (5-37) U/L ALT (0-40) U/L Alkaline Phosphatase (39-117) U/L B-Natriuretic Peptide 253 H (<100) pg/mL Total Protein (6.5-8.0) g/dL Albumin (3.5-5.0) g/dL COVID-19 (CHEPE) Positive A (Negative) COVID-19 Clin Com See Note Discharge Plan Discharge Clinical Impression: COVID-19, Subtherapeutic anticoagulation Patient Disposition: Home, Self-Care Instructions: COVID-19 (Coronavirus Disease 2019) (ED) Additional Instructions: You are not therapeutic on your Coumadin. Please take Coumadin 7.5 mg every days starting tomorrow until you see your primary care provider. Please call your primary care provider tomorrow for follow-up appointment from today's emergency room visit. Please use your albuterol inhaler, 2 puffs every 4 hours while you are awake for the next 3-4 days. Please drink plenty of fluids and rest. Please return to emergency room if you have chest pain, shortness of breath, fevers, or any other new or concerning symptoms Prescriptions: New albuterol sulfate 90 mcg/actuation HFA aerosol inhaler 2 puff inhalation Q4-6H Qty: 8.5 1RF Rx Instructions: Please provide a spacer and instructions for use No Action metoprolol succinate 100 mg tablet extended release 24 hr 100 mg PO QAM Qty: 30 1RF atorvastatin 40 mg tablet 1 tab PO BEDTIME 0RF bumetanide 2 mg tablet 1 tab PO BID 0RF aspirin 81 mg tablet,delayed release (DR/EC) 1 tab PO BEDTIME 0RF levothyroxine 25 mcg tablet 1 tab PO DAILY 0RF warfarin 5 mg tablet 5 mg PO DAILY 0RF Hold Instructions: Resume on 04/25/21. Protocol: Dose Management Condition: Sunday Dose/Route: 0 mg Instruction: 0 tablets Condition: Sunday Dose/Route: 0 mg Instruction: 0 tablets Condition: Sunday Dose/Route: 7.5 mg Instruction: 1 x 2.5 mg tablet, 1 x 5 mg tablet Condition: Sunday Dose/Route: 7.5 mg Instruction: 1 x 2.5 mg tablet, 1 x 5 mg tablet Condition: Dose/Route: 5 mg Instruction: 1 x 5 mg tablet Condition: Sunday Dose/Route: 5 mg Instruction: 1 x 5 mg tablet Condition: Sunday Dose/Route: 5 mg Instruction: 1 x 5 mg tablet Protocol Text: Adjustment Start Date: Sunday08/09/21 INR Value: 1.1 INR Date: 08/09/21 Recheck Date: 08/12/21 Additional Instructions: INR is low as you have not been taking your warfarin today take 7.5mg and tomorrow 7.5mg then 5mg on and we will see you on Sunday NO GREENS next couple days Rx Instructions: dose varies depending on inr gabapentin 300 mg capsule 1 cap PO TID 0RF lisinopril 40 mg tablet 1 tab PO DAILY 0RF insulin aspart U-100 [Novolog Flexpen U-100 Insulin] 100 unit/mL (3 mL) insulin pen See Protocol sliding scale dose subcut QIDACHS 0RF Protocol: Insulin Correction Scale Less than or equal to 110 ---- Give (units): 0 111 to 150 Give (units): 0 151 to 200 Give (units): 2 201 to 250 Give (units): 4 251 to 300 Give (units): 6 301 to 350 Give (units): 8 Greater than 350 Give (units): 10 Call MD if Blood Glucose > : 350 Langregorio Solostar U-100 Insulin 100 unit/mL (3 mL) insulin pen 36 unit subcut BEDTIME 0RF multivitamin with folic acid [Tab-A-Priscilla] 400 mcg tablet 1 tab PO DAILY 0RF (DME) blood-glucose meter [FreeStyle Lite Meter] Kit See Rx Instructions ea .ROUTE .MEDSUPPLY Qty: 1 0RF Rx Instructions: As directed (DME) Comfort EZ Pen Mccrory 33 gauge x 1/4 needle See Rx Instructions ea .ROUTE QID Qty: 100 0RF Rx Instructions: As directed (DME) lancets [FreeStyle Lancets] 28 gauge misc See Rx Instructions ea Not Applicable QID Qty: 100 0RF Rx Instructions: As directed (DME) FreeStyle Valeria 2 Sensor Kit See Rx Instructions .ROUTE .MEDSUPPLY Qty: 1 0RF Rx Instructions: As directed warfarin 2.5 mg tablet 2.5 mg PO DAILY 0RF Protocol: Dose Management Condition: Sunday Dose/Route: 0 mg Instruction: 0 tablets Condition: Sunday Dose/Route: 0 mg Instruction: 0 tablets Condition: Sunday Dose/Route: 7.5 mg Instruction: 1 x 2.5 mg tablet, 1 x 5 mg tablet Condition: Sunday Dose/Route: 7.5 mg Instruction: 1 x 2.5 mg tablet, 1 x 5 mg tablet Condition: Dose/Route: 5 mg Instruction: 1 x 5 mg tablet Condition: Sunday Dose/Route: 5 mg Instruction: 1 x 5 mg tablet Condition: Sunday Dose/Route: 5 mg Instruction: 1 x 5 mg tablet Protocol Text: Adjustment Start Date: Sunday08/09/21 INR Value: 1.1 INR Date: 08/09/21 Recheck Date: 08/12/21 Additional Instructions: INR is low as you have not been taking your warfarin today take 7.5mg and tomorrow 7.5mg then 5mg on and we will see you on Sunday NO GREENS next couple days
[2021-08-12] MEDS: Albuterol/Iprat 2.5/0.5MG 3 ML AMPUL.NEB INHALE (15:24)
[2021-08-12 15:25] VITALS: PULSE 81; RESP 18; O2SAT 96
[2021-08-12 15:58] LABS: MANUAL DIFF FLAG NO
[2021-08-12 15:59] LABS: Basophils Percent Auto 0.4 % (0-2); Eosinophils Absolute Auto 0.3 X10*3/uL (0.0-0.4); Eosinophils Percent Auto 4.8 % (0-4); Hematocrit 37.3 % (42.0-52.0); Hemoglobin 11.7 g/dl (14.0-18.0); Imm Gran Abs Auto 0.01 X10*3/uL (0.00-0.03); Imm Gran Pct Auto 0.2 % (0.0-0.4); Lymphocytes Percent Auto 55.6 % (20-40); Mean Corpuscular HGB Conc 31.4 g/dl (31.0-36.0); Mean Corpuscular Volume 92.6 fL (80.0-98.0); Monocytes Absolute Auto 0.4 X10*3/uL (0.1-1.2); Monocytes Percent Auto 7.2 % (2-11); Neutrophils Absolute Auto 1.7 x10*3/uL (2.0-8.3); Neutrophils Percent Auto 31.8 % (45-73); Platelet Count 114 X10*3/uL (160-400); Red Blood Count 4.03 X10*6/uL (4.60-5.80); Red Cell Distribution Width 15.5 % (11.0-16.0); White Blood Count 5.5 X10*3/uL (4.8-10.8)
[2021-08-12 16:00] LABS: Venous Blood Gas Refer to POC result
[2021-08-12 16:01] LABS: VBG HCO3 40 mmol/L (22-26); VBG pCO2 60 mmHg; VBG pH 7.43 (7.32-7.43); VBG pO2 59 mmHg
[2021-08-12 16:05] LABS: INTERNATIONAL NORM RATIO 1.2 (0.9-1.1); Prothrombin Time 14.1 SEC (9.9-13.0)
[2021-08-12 16:08] LABS: Partial Thromboplastin Time 34.2 SEC (24.1-38.0)
[2021-08-12 16:11] VITALS: BP 142/69; PULSE 85; RESP 16; TEMP 36.7; O2SAT 94
[2021-08-12 16:12] LABS: COVID-19 Test Positive (Negative); IDNOW Serial# 9DD0AD1C
[2021-08-12 16:18] LABS: B Type Natriuretic Peptide 253 pg/mL (<100)
[2021-08-12 16:20] LABS: Alanine Aminotransferase 43 U/L (0-40); Albumin Level 3.5 g/dL (3.5-5.0); Alkaline Phosphatase 121 U/L (39-117); Anion Gap 12 (12-20); Aspartate Amino Transferase 53 U/L (5-37); Bilirubin Total 0.6 mg/dL (0.0-1.0); Blood Urea Nitrogen 39 mg/dL (9-16); Calcium 8.6 mg/dL (8.4-10.2); Carbon Dioxide 33 mmol/L (22-29); Chloride 104 mmol/L (96-108); Creatinine Clr Calc Pharmacy 50.7; Estimated Glomerular Filt Rate 49; Glucose Random 214 mg/dL (60-115); Potassium 4.2 mmol/L (3.3-5.1); Sodium 145 mmol/L (135-145); Total Protein 6.9 g/dL (6.5-8.0)
[2021-08-12] MEDS: Enoxaparin Sodium 100 MG/ML SYRINGE SUBCUT (18:48)
== END 2021-08-12 19:16 | disposition home or self-care (01) ==
PROVIDERS: Emergency Medicine; Physician Assistant; Emergency Provider Internal Medicine; PCP Physician Assistant
DX: U07.1 COVID-19 (principal); R79.1 Abnormal coagulation profile; I11.0 Hypertensive heart disease with heart failure; I50.9 Heart failure, unspecified; E11.9 Type 2 diabetes mellitus without complications; I48.91 Unspecified atrial fibrillation; J44.9 Chronic obstructive pulmonary disease, unspecified; Z95.2 Presence of prosthetic heart valve; Z79.01 Long term (current) use of anticoagulants; Z59.01 Sheltered homelessness
CPT/HCPCS: 71046; 71250; 80053; 82803; 83880; 85025; 85610; 85730; 87635; 94640; 96372; 99284; J1650

== ENCOUNTER → 2021-08-23 10:35 | Outpatient (BNVA) | payer OTHER, SELFPAY | PROVIDERS: PCP Physician Assistant; Visit Provider Internal Medicine | DX: I48.91 Unspecified atrial fibrillation (principal); I35.0 Nonrheumatic aortic (valve) stenosis; Z79.01 Long term (current) use of anticoagulants; Z51.81 Encounter for therapeutic drug level monitoring | CPT/HCPCS: 85610; 99212 ==

== ENCOUNTER → 2021-08-26 10:27 | Outpatient (BNVA) | payer OTHER, SELFPAY | PROVIDERS: PCP Physician Assistant; Visit Provider Internal Medicine | DX: I48.91 Unspecified atrial fibrillation (principal); I35.0 Nonrheumatic aortic (valve) stenosis; Z79.01 Long term (current) use of anticoagulants; Z51.81 Encounter for therapeutic drug level monitoring | CPT/HCPCS: 85610; 99212 ==

== ENCOUNTER → 2021-08-30 09:44 | Outpatient (BNVA) | payer OTHER, SELFPAY | PROVIDERS: PCP Physician Assistant; Visit Provider Internal Medicine | DX: I48.0 Paroxysmal atrial fibrillation (principal); Z79.01 Long term (current) use of anticoagulants; Z51.81 Encounter for therapeutic drug level monitoring | CPT/HCPCS: 85610; 99211 ==

== ENCOUNTER → 2021-09-07 13:19 | Outpatient (BNVA) | payer OTHER, SELFPAY | PROVIDERS: PCP Physician Assistant; Visit Provider Internal Medicine | DX: I48.91 Unspecified atrial fibrillation (principal); I35.0 Nonrheumatic aortic (valve) stenosis; Z51.81 Encounter for therapeutic drug level monitoring; Z79.01 Long term (current) use of anticoagulants | CPT/HCPCS: 85610; 99211 ==

== ENCOUNTER → 2021-09-12 09:30 | Outpatient (BNVA) | payer OTHER, SELFPAY | PROVIDERS: PCP Physician Assistant; Visit Provider Internal Medicine | DX: I48.91 Unspecified atrial fibrillation (principal); I35.0 Nonrheumatic aortic (valve) stenosis; Z79.01 Long term (current) use of anticoagulants; Z51.81 Encounter for therapeutic drug level monitoring | CPT/HCPCS: 85610; 99211 ==

== ENCOUNTER → 2021-09-13 14:19 | Outpatient (BNVA) | payer OTHER, SELFPAY | PROVIDERS: PCP Physician Assistant; Referring Provider Physician Assistant; Visit Provider Nurse Practitioner Family | DX: I48.11 Longstanding persistent atrial fibrillation (principal); I50.9 Heart failure, unspecified; I77.9 Disorder of arteries and arterioles, unspecified; Z95.2 Presence of prosthetic heart valve; Z79.01 Long term (current) use of anticoagulants; Z79.899 Other long term (current) drug therapy | CPT/HCPCS: 93005; 99212 ==

== ENCOUNTER → 2021-09-15 10:05 | Outpatient (BNVA) | payer OTHER, SELFPAY | PROVIDERS: PCP Physician Assistant; Visit Provider Internal Medicine | DX: I48.91 Unspecified atrial fibrillation (principal); I35.0 Nonrheumatic aortic (valve) stenosis; Z51.81 Encounter for therapeutic drug level monitoring; Z79.01 Long term (current) use of anticoagulants | CPT/HCPCS: 85610; 99211 ==

== ENCOUNTER → 2021-09-19 09:45 | Outpatient (BNVA) | payer OTHER, SELFPAY | PROVIDERS: PCP Physician Assistant; Visit Provider Internal Medicine | DX: I48.91 Unspecified atrial fibrillation (principal); I35.0 Nonrheumatic aortic (valve) stenosis; Z79.01 Long term (current) use of anticoagulants; Z51.81 Encounter for therapeutic drug level monitoring | CPT/HCPCS: 85610; 99211 ==

== ENCOUNTER → 2021-09-26 10:20 | Outpatient (BNVA) | payer OTHER, SELFPAY | PROVIDERS: PCP Physician Assistant; Visit Provider Internal Medicine | DX: I48.91 Unspecified atrial fibrillation (principal); I35.0 Nonrheumatic aortic (valve) stenosis; Z51.81 Encounter for therapeutic drug level monitoring; Z79.01 Long term (current) use of anticoagulants | CPT/HCPCS: 85610; 99212 ==

== ENCOUNTER → 2021-09-28 10:14 | Outpatient (BNVA) | payer OTHER, SELFPAY | PROVIDERS: PCP Physician Assistant; Visit Provider Internal Medicine | DX: I48.91 Unspecified atrial fibrillation (principal); Z79.01 Long term (current) use of anticoagulants; I35.0 Nonrheumatic aortic (valve) stenosis; Z51.81 Encounter for therapeutic drug level monitoring | CPT/HCPCS: 85610; 99211 ==

== ENCOUNTER → 2021-09-30 09:42 | Outpatient (BNVA) | payer OTHER, SELFPAY | PROVIDERS: PCP Physician Assistant; Visit Provider Internal Medicine | DX: I48.91 Unspecified atrial fibrillation (principal); I35.0 Nonrheumatic aortic (valve) stenosis; Z51.81 Encounter for therapeutic drug level monitoring; Z79.01 Long term (current) use of anticoagulants | CPT/HCPCS: 85610; 99211 ==

== ENCOUNTER → 2021-11-21 12:43 | Outpatient (REF) | payer OTHER, SELFPAY ==
--- NOTE | 2021-11-21 12:54 | HM_ITS ---
* Total monitoring time 2 days. * Underlying rhythm is atrial fibrillation. Average rate 74/Min. Range 47 to 105/Min. * Frequent ventricular ectopy. 2 morphologies and some couplets. Overall burden 4.5%. * No patient events. MTDD
--- NOTE | 2021-11-21 12:54 | CA_ITS ---
Transthoracic Echocardiogram Patient (Last, First, Middle): Jason Narayanan, Gender: Male Date of : 1945 Age: 76 Procedure Date: 11/21/2021 Procedure Type: Transthoracic Echocardiogram Location: OP Height: 170.18 cm Weight: 106.6 kg BSA: 2.17 m2 Heart Rate: bpm BP: 140 / 62 mmHg Sound Designer: TO Referring MD: Ayaka Tapia MANAGER [employer] Symptoms: I48.91 - Unspecified atrial fibrillation Study Quality: Fair/Contrast ECG Rhythm: Atrial Fibrillation Conclusions: - The left ventricular systolic function is normal. The calculated ejection fraction is 55% by biplane method. - There is moderately decreased right ventricular systolic function. - Moderate biatrial enlargement. - A bioprosthetic aortic valve is present. The prosthetic aortic valve appears to be functioning normally. - There is moderate mitral annular calcification. - There is moderate tricuspid valve regurgitation. - Moderate pulmonary hypertension is present. Findings Procedure Information Contrast agent, definity, is being given per protocol without apparent complications. Left Ventricle Normal left ventricular cavity size. There is mildly increased left ventricular wall thickness. The left ventricular systolic function is normal. The calculated ejection fraction is 55% by biplane method. There is no evidence of regional wall motion abnormalities. There is paradoxical septal motion consistent with post-operative status. Diastolic function is indeterminate on the basis of available data. Right Ventricle Moderately increased right ventricular cavity size. There is moderately decreased right ventricular systolic function. Atria Moderate biatrial enlargement. Aortic Valve A bioprosthetic aortic valve is present. The prosthetic aortic valve appears to be functioning normally. There is mild calcification of the aortic valve. There is no aortic valve regurgitation. Mitral Valve There is moderate mitral annular calcification. There is trace mitral valve regurgitation. There is no mitral valve stenosis. Pulmonic Valve The pulmonic valve is likely normal. Tricuspid Valve Normal tricuspid valve structure. There is moderate tricuspid valve regurgitation. The right ventricular systolic pressure is 55 mmHg. Moderate pulmonary hypertension is present. Great Vessels The asc aorta is normal in size. Small plaque is seen in the sinuses of Valsalva. Venous The inferior vena cava is dilated and collapses less than 50% with inspiration. Pericardium/Pleural There is no evidence of pericardial effusion. Prior Study Comparison No prior study available for comparison. Measurements 2D Linear Measurements IVSd: 1.26 0.6-0.9/0.6-1.0 cm LVIDd: 4.96 3.9-5.3/4.2-5.9 cm LVIDd Index: 2.29 2.4-3.2/2.2-3.1 cm/m2 LVIDs: 3.43 2.0-3.6 cm LVPWd: 1.20 0.7-1.1 cm LA Diam: 4.90 2.7-3.8/3.0-4.0 cm LAIDs Index: 2.26 1.5-2.3 cm/m2 LV Mass: 297.95 67-162/88-224 g LV Mass Index: 137.31 43-95/49-115 g/m2 LVOT Diam: 2.10 3.0+(-)1.3 cm 2D Systolic Function EF 4C: 57.90 >55% EF 2C: 54.30 >55% EF BiP: 55.20 >55% Mitral Valve MV Pk E: 1.50 MV Decel Time: 203.00 E'Lateral: 7.72 E'Medial: 5.44 E/E' Med: 27.60 E/E' Lat: 19.40 PHT: 60.00 MVA PHT: 3.67 Decel [place]: 7.38 Aortic Valve AoV Pk Sonido: 2.18 AoV Mn Sonido: 1.50 AoV VTI: 0.44 AoV Pk Grad: 19.00 Aov Mn Grad: 10.00 MARY KAY Cont.VTI: 1.90 LVOT LVOT Pk Sonido: 1.19 LVOT Mn Sonido: 0.79 LVOT VTI: 0.24 LVOT Pk Grad: 6.00 LVOT Mn Grad: 3.00 LVOT Diam: 2.10 LVOT Area: 3.46 Diastolic Function MV Pk E: 1.50 E'Medial: 5.44 E/E' Med: 27.60 E' Laterial: 7.72 E/E' Lat: 19.40 Right Ventricle TAPSE (mm): 12.20 TVS' Sonido: 9.46 Tricuspid Valve TR Pk Sonido: 3.16 TR Pk Grad: 40.00 RA Press: 15.00 RVSP: 55.00 Great Vessels Aorta Sinus of Valsalva: 3.62 2.0-3.[address] [place]: 2.66 1.7-3.4 cm Ao Asc: 3.30 2.1-3.4 cm Updated in Other Vendor System with Status of Final Tirso Bethea MD electronically signed on 11/22/2021 11:54:40 AM with status of Final
== END ==
LOC: HO.CARD 12:43
PROVIDERS: PCP Physician Assistant; Visit Provider Nurse Practitioner Family
DX: I48.91 Unspecified atrial fibrillation (principal)
CPT/HCPCS: 93242; 93306; Q9957

== ENCOUNTER 2021-11-28 10:12 | Outpatient (REF) | payer OTHER, SELFPAY ==
--- NOTE | ~2021-11-28 | XR_ITS ---
EXAMINATION: XR CERVICAL SPINE CLINICAL INFORMATION: Spinal stenosis, cervical region COMPARISON: None TECHNIQUE: AP, lateral, odontoid, and both oblique views of the cervical spine FINDINGS: There is straightening of the normal cervical lordosis. Normal prevertebral soft tissues. The dens is intact. The lateral masses are normally positioned. There is loss of disc height with endplate sclerosis and anterior osteophytosis at C5-C6 and C6-C7. Mild multilevel osseous neuroforaminal narrowing seen bilaterally C3-C4, C4-C5, and C5-C6. XR/XR cervical spine 4V IMPRESSION: Multilevel degenerative disc disease with osseous neuroforaminal narrowing suggested at multiple levels as described above.
== END 2021-11-28 10:13 | disposition home or self-care (01) ==
LOC: HO.XRAY 10:12
PROVIDERS: PCP Physician Assistant; Visit Provider Physician Assistant
DX: M48.02 Spinal stenosis, cervical region (principal)
CPT/HCPCS: 72050